=== PATIENT | male | born 1980 | race Caucasian/White ===

== ENCOUNTER 2021-01-21 14:34 | Inpatient (IN) | payer OTHER ==
[2021-01-21] MEDS ORDERED: NOREPINEPHRINE 32 MG in SODIUM CHLORIDE 0.9% 218 ML IV ONE (14:44)
--- NOTE | 2021-01-21 14:55 | ED ---
CPR HPI - General Stated Complaint: Overdose Time Seen by Provider: 01/21/21 14:34 Source: RN/MD, EMS, RN notes reviewed Mode of arrival: EMS - History of Present Illness Initial Comments: This is a 32-year-old male who was found unresponsive at home for an unknown amount of time he does have a history of heroin and cocaine abuse. He was found to be in asystole CPR was started he was given initially a total of 3 mg epinephrine with return of spontaneous circulation he then went into asystole again was given a fourth milligram of epinephrine went into A. fib and later returned normal sinus rhythm. He is also given Narcan IV. Patient was taken to [facility] and transferred here for further evaluation. Patient was not responsive he did require intubation as well as central line and vasopressors for blood pressure support. Patient was transferred here in a condition he has maintained his pulse is pressure was maintained with vasopressors. No other information available at this time MD Complaint: found unresponsive - Related Data Allergies Allergy/AdvReac Type Severity Reaction Status Date / Time No Known Allergies Allergy Verified 01/21/21 14:55 Review of Systems ROS Statement: Those systems with pertinent positive or pertinent negative responses have been documented in the HPI. ROS Other: All systems not noted in ROS Statement are negative. Limitations: ROS unobtainable due to patients medical condition General Exam - General Exam Comments Initial Comments: Is a well-developed well-nourished unresponsive male he is intubated with oral tracheal tube Limitations: altered mental status, physical limitation General appearance: other (Unresponsive) Head exam: Present: atraumatic Eye exam: Present: other (Pupils fixed and dilated) ENT exam: Present: other (Orotracheal tube present) Neck exam: Present: normal inspection Respiratory exam: Present: other (Good ventilatory effort with ventilator.) Cardiovascular Exam: Present: regular rate, normal rhythm, normal heart sounds. Absent: systolic murmur, diastolic murmur, rubs, gallop, clicks Rectal exam: Present: deferred exam: Present: normal inspection Extremities exam: Present: normal inspection, full ROM, normal capillary refill. Absent: tenderness, pedal edema, joint swelling, calf tenderness Back exam: Present: normal inspection Neurological exam: Present: other (Unresponsive) Psychiatric exam: Present: other (Unable to evaluate) Skin exam: Present: warm, dry, intact, normal color. Absent: rash Course Vital Signs 01/21/21 01/21/21 01/21/21 14:46 14:54 15:29 Temperature 90.0 F L Pulse Rate 63 69 Respiratory 16 12 Rate Blood Pressure 73/33 75/36 O2 Sat by Pulse 100 94 L Oximetry 01/21/21 01/21/21 01/21/21 15:30 15:45 16:00 Temperature 89.8 F L Pulse Rate 70 77 77 Respiratory 12 12 12 Rate Blood Pressure 73/44 88/42 107/74 O2 Sat by Pulse 94 L 95 Oximetry - Reevaluation(s) Reevaluation #1: 01/21/21 16:14 X-ray reviewed? Early infiltrate ET tube in good placement Medical Decision Making - Medical Decision Making I did review the materials presented from [facility] as well as discussed the initial findings with the paramedics at. The patient at home as well as transported. Also discussion with family as well as discussion with the admitting physician as well as with the hydraulic controls technician. Patient will be admitted. Also includes multiple reevaluation the patient. - Lab Data Lab Results 01/21/21 Range/Units 14:54 Sample Site rbrach ABG pH 7.11 L* (7.35-7.45) ABG pCO2 50 H (35-45) mmHg ABG pO2 273 H (83-108) mmHg ABG HCO3 16 L (21-25) mmol/L ABG Total CO2 18 L (19-24) mmol/L ABG O2 Saturation 99.6 H (94-97) % ABG Base Excess -13.6 mmol/L Ezequiel Test Yes FiO2 100 % - EKG Data -: EKG Interpreted by Me EKG shows normal: sinus rhythm EKG Comments: Sinus rhythm rate of 61 appear interval 182 QRS duration 112 QT since QTC 524/[address] depression prolonged QT - Radiology Data Radiology results: report reviewed (Imaging reviewed CT brain appears to be unremarkable chest x-ray shows ET tube in good placement question early aspiration infiltrate), image reviewed Critical Care Time Critical Care Time: Yes Total Critical Care Time: 35 Critical Care Time: Critical care time includes initial presentation with history physical labs x- rays review of the materials from the sending hospital. Reevaluation the patient discussed with family discussed with multiple physicians admission orders documentation the above Disposition Clinical Impression: Acute respiratory failure, Cardiac arrest, Drug overdose, Encephalopathy acute Disposition: ADMITTED IP TO THIS HOSP Condition: Critical Referrals: None,Stated [Primary Care Provider] - 1-2 days
[2021-01-21 14:57] LABS: ABG Base Excess -13.6 mmol/L; ABG HCO3 16 mmol/L (21-25); ABG Oxygen Saturation 99.6 % (94-97); ABG PCO2 50 mmHg (35-45); ABG PO2 273 mmHg (83-108); ABG TCO2 18 mmol/L (19-24); Allen Test Performed? Yes
[2021-01-21] MEDS ORDERED: NOREPINEPHRINE 32 MG in SODIUM CHLORIDE 0.9% 218 ML IV SCH (15:00)
[2021-01-21 15:03] LABS: ABG PH 7.11 (7.35-7.45)
[2021-01-21] MEDS ORDERED: ACETAMINOPHEN TAB 325 MG TAB PO PRN (15:17)
[2021-01-21] MEDS ORDERED: ARTIFICIAL TEARS OINTMENT 3.5 GM TUBE BOTH EYES PRN (15:17)
[2021-01-21] MEDS ORDERED: ACETAMINOPHEN SUPPOSITORY 650 MG SUPP RECTAL PRN (15:17)
[2021-01-21] MEDS ORDERED: NALOXONE 0.4 MG/ML 1 ML VIAL IV PRN (15:17)
[2021-01-21] MEDS ORDERED: SODIUM BICARB 8.4% 50 ML SYR (1 MEQ/ML) IV STA ×2 (15:19→15:25)
--- NOTE | 2021-01-21 15:33 | XR ---
EXAMINATION TYPE: XR chest 1V confirm line [facility] DATE OF EXAM: 01/21/2021 COMPARISON: Chest x-ray from outside institution same date HISTORY: Intubated TECHNIQUE: Single frontal view of the chest is obtained. FINDINGS: Endotracheal tube, NG tube are overlying appropriate positions. No evident pneumothorax or pleural effusion. Defibrillator pad present over the lower right chest, patient is rotated. Question able retrocardiac density noted. There are overlying leads. IMPRESSION: Difficult to exclude an aspiration pneumonia, expiratory rotated exam.
--- NOTE | 2021-01-21 16:19 | CT ---
EXAMINATION TYPE: CT brain wo con DATE OF EXAM: 01/21/2021 COMPARISON: None. HISTORY: Cardiac arrest, possible overdose. CT DLP: 1217.4 mGycm. Automated Exposure Control for Dose Reduction was Utilized. TECHNIQUE: CT scan of the head is performed without contrast. FINDINGS: Sulcal effacement with poor ortega-white matter differentiation is concerning for global an oxic injury. No hydrocephalus. Low-lying cerebellar tonsils into foramen magnum sagittal image 45 wit hout greater than 5 mm inferior displacement noted. Suprasellar cistern is effaced along with perimes encephalic cisterns. Hyperdense material at this level is consistent with pseudosubarachnoid hemorrha ge related to global anoxic injury. Mucosal thickening and patchy opacification ethmoid sinuses bilat erally. Moderately coastal thickening right sphenoid sinus and mild mucosal thickening bilateral maxi llary sinuses. Globes are intact bilaterally. Partial visualization of a left-sided nasogastric tube and endotracheal tube on the localizer. IMPRESSION: Diffuse sulcal effacement and ortega-white matter blurring consistent with global anoxic in jury causing obliteration of the suprasellar and perimesencephalic cisterns. Correlate clinically. No hydrocephalus or midline shift.
--- NOTE | 2021-01-21 16:30 | P.HPIM ---
History of Present Illness H&P Date: 01/21/21 Chief Complaint: Cardiac arrest 40-year-old man who has a history of substance abuse presented with cardiac arrest. Patient was found in asystole for an unknown downtime, EMS initiated CPR. Patient received 3 rounds epinephrine with return to PEA, then had brief A. fib with RVR prior to return of spontaneous circulation. Patient's neurological exam was incredibly poor following resuscitation. Workup at initial emergency room demonstrated normal CBC, acidosis on BMP, elevated AST/ALT in the 4000s consistent with shock, lactic acid of 18.1. ABG demonstrated pH of 7.11. U tox demonstrated positivity for methamphetamine, amphetamine, cocaine, opiate. Outside hospital documentation demonstrate concern for heroin overdose. Patient cannot participate in review of systems secondary to cardiac arrest. Review of Systems See HPI Past Medical History Past Medical History: No Reported History History of Any Multi-Drug Resistant Organisms: None Reported Past Surgical History: No Surgical Hx Reported Past Psychological History: No Psychological Hx Reported Smoking Status: Unknown if ever smoked Past Alcohol Use History: Unable to Obtain Past Drug Use History: Unable to Obtain Medications and Allergies Allergies Allergy/AdvReac Type Severity Reaction Status Date / Time No Known Allergies Allergy Verified 01/21/21 14:55 Physical Exam Osteopathic Statement: *. No significant issues noted on an osteopathic structural exam other than those noted in the History and Physical/Consult. Vitals: Vital Signs Temp Pulse Resp BP Pulse Ox 01/21/21 16:00 89.8 F L 77 12 107/74 95 01/21/21 15:45 77 12 88/42 01/21/21 15:30 70 12 73/44 94 L 01/21/21 15:29 69 12 75/36 94 L 01/21/21 14:54 90.0 F L 01/21/21 14:46 63 16 73/33 100 Intake and Output 01/21/21 01/21/21 01/21/21 06:59 14:59 22:59 Intake Total 1.332 Balance 1.332 Intake: Intake, IV Titration 1.332 Amount Norepinephrine 32 mg In 1.332 Sodium Chloride 0.9% 218 ml @ 0.05 MCG/KG/MIN 2. 578 mls/hr IV .Q24H [facility] Rx#:[id number] Other: Weight 110 kg Gen: Intubated, nonresponsive HEENT: normocephalic, atraumatic, good hearing acuity, moist mucous membranes Resp: Vent: Before meals 500, PEEP of 5, FiO2 100%, CVS: good distal perfusion x 4, regular rate and rhythm without murmurs GI: soft, ND : no SPT, no CVAT, wesley catheter is present MSK: no pitting edema, no clubbing Neuro: Fixed and dilated pupils, no movement to painful stimulus in all 4 extremities, no gag, no cough Results Labs: Abnormal Lab Results - Last 24 Hours (Table) 01/21/21 Range/Units 14:54 ABG pH 7.11 L* (7.35-7.45) ABG pCO2 50 H (35-45) mmHg ABG pO2 273 H (83-108) mmHg ABG HCO3 16 L (21-25) mmol/L ABG Total CO2 18 L (19-24) mmol/L ABG O2 Saturation 99.6 H (94-97) % Assessment and Plan Assessment: Narcotic overdose Cardiac arrest with return of spontaneous circulation Global anoxic brain injury -Admit to ICU -Pulmonary, neurology consult -Goals of care conversation with family pending -Unlikely to have meaningful recovery -Daily labs -neurochecks Pt is full code DVT PPx with heparin TID
[2021-01-21 16:35] LABS: HCT 45.1 % (39.0-53.0); HGB 14.9 gm/dL (13.0-17.5); MCH 30.2 pg (25.0-35.0); MCV 91.5 fL (80.0-100.0); Mean Platelet Volume 9.6; Platelet Count 297 k/uL (150-450); RBC 4.93 m/uL (4.30-5.90); RDW 12.3 % (11.5-15.5)
[2021-01-21 16:41] LABS: Calcium 7.6 mg/dL (8.4-10.2); Magnesium 2.4 mg/dL (1.6-2.3)
[2021-01-21] MEDS ORDERED: cefTRIAXone IN SWFI 1,000 MG/10 ML SYRINGE IVP STA (16:44)
[2021-01-21 16:45] LABS: Potassium 6.1 mmol/L (3.5-5.1)
[2021-01-21 16:55] LABS: Band Neutrophils % 5 %; Eosinophils # (M) 0.36 k/uL (0-0.7); Lymphocytes # (M) 5.04 k/uL (1.0-4.8); Metamyelocytes # (M) 1.44 k/uL (0); Metamyelocytes % 4 %; Monocytes # (M) 1.44 k/uL (0-1.0); Neutrophils % (M) 72 %; Nucleated Red Blood Cells 0 /100 WBC (0-0); Polychromasia Present; Total Cells Counted 100
[2021-01-21] MEDS: HEPARIN SODIUM,PORCINE/PF 5,000 UNIT/0.5 ML SYRINGE SQ SCH ×2 (19:08→23:51)
[2021-01-21] MEDS ORDERED: LORazepam 2 MG/ML INJ IV STA (19:25)
[2021-01-21] MEDS ORDERED: PHENYTOIN SODIUM INJ 1,000 MG in SODIUM CHLORIDE 0.9% 100 ML IVPB STA (19:26)
[2021-01-21] MEDS ORDERED: levETIRAcetam IV 1,000 MG in SALINE 1 100ML.BAG IVPB STA (19:26)
[2021-01-21 19:45] LABS: Glucose,Whole Blood 143 mg/dL (75-99)
[2021-01-21 19:48] LABS: INR 2.9 (<1.2); Partial Thromboplastin Time 65.9 sec (22.0-30.0); Prothrombin Time 27.9 sec (9.0-12.0)
[2021-01-21 19:51] LABS: Albumin 3.4 g/dL (3.5-5.0); Calcium 7.5 mg/dL (8.4-10.2); Magnesium 2.2 mg/dL (1.6-2.3); Phosphorus 6.9 mg/dL (2.5-4.5); Potassium 4.1 mmol/L (3.5-5.1); Total Bilirubin 1.4 mg/dL (0.2-1.3); Total Protein 6.2 g/dL (6.3-8.2)
[2021-01-21 19:54] LABS: HCT 46.8 % (39.0-53.0); HGB 15.6 gm/dL (13.0-17.5); MCH 30.4 pg (25.0-35.0); MCHC 33.4 g/dL (31.0-37.0); Mean Platelet Volume 9.5; Platelet Count 238 k/uL (150-450); RBC 5.14 m/uL (4.30-5.90); RDW 12.3 % (11.5-15.5); WBC 35.8 k/uL (3.8-10.6)
[2021-01-21] MEDS ORDERED: LORazepam 2 MG/ML INJ IV PRN (20:29)
[2021-01-21 21:32] LABS: Band Neutrophils % 16 %; Lymphocytes # (M) 2.86 k/uL (1.0-4.8); Metamyelocytes # (M) 0.36 k/uL (0); Metamyelocytes % 1 %; Monocytes # (M) 1.43 k/uL (0-1.0); Neutrophils % (M) 71 %; Nucleated Red Blood Cells 0 /100 WBC (0-0); Polychromasia Present; Total Cells Counted 100
[2021-01-21 21:41] LABS: ABG Base Excess -7.2 mmol/L; ABG HCO3 19 mmol/L (21-25); ABG Oxygen Saturation 92.7 % (94-97); ABG PCO2 40 mmHg (35-45); ABG PO2 66 mmHg (83-108); ABG TCO2 21 mmol/L (19-24); Allen Test Performed? Yes
[2021-01-21] MEDS ORDERED: NOREPINEPHRIN 4 MG-0.9% NS PMX 4 MG/250 ML ML IV ONE (21:49)
[2021-01-21] MEDS: NOREPINEPHRINE 4 MG in SODIUM CHLORIDE 0.9% 250 ML IV SCH (21:50)
[2021-01-21] MEDS: SODIUM CHLORIDE 0.9% 1,000 ML IV SCH (23:47)
[2021-01-22 02:29] LABS: HCT 43.3 % (39.0-53.0); HGB 14.1 gm/dL (13.0-17.5); MCH 29.6 pg (25.0-35.0); MCHC 32.6 g/dL (31.0-37.0); MCV 90.8 fL (80.0-100.0); Mean Platelet Volume 9.5; Platelet Count 269 k/uL (150-450); RBC 4.77 m/uL (4.30-5.90); RDW 12.4 % (11.5-15.5); WBC 23.8 k/uL (3.8-10.6)
[2021-01-22 02:36] LABS: Albumin 2.7 g/dL (3.5-5.0); Calcium 6.9 mg/dL (8.4-10.2); Magnesium 1.8 mg/dL (1.6-2.3); Potassium 3.4 mmol/L (3.5-5.1); Total Bilirubin 1.2 mg/dL (0.2-1.3); Total Protein 5.3 g/dL (6.3-8.2)
[2021-01-22] MEDS ORDERED: Potassium Replacement Protocol 1 EACH MISC MISCELLANE PRN (02:51)
[2021-01-22] MEDS ORDERED: SODIUM CHLORIDE 0.9% 1,000 ML IV ONE ×2 (03:00→22:39)
--- NOTE | 2021-01-22 03:23 | XR ---
EXAMINATION TYPE: XR chest 1V DATE OF EXAM: 01/22/2021 COMPARISON: NONE HISTORY: Respiratory failure TECHNIQUE: Single view FINDINGS: There is endotracheal tube 3.5 cm from the clifton. There is nasogastric tube there appears to be looped at the gastric fundus. There is some infiltrate and atelectasis left lung base behind th e heart. Heart is deviated slightly to the left side. Right lung is clear. There are chest leads. Bon y thorax is intact. IMPRESSION: There is probably some infiltrate and atelectasis left lower lobe. No heart failure. Endo tracheal tube in good position.
[2021-01-22] MEDS: POTASSIUM CHLORIDE 10 MEQ in WATER FOR INJECTION 1 100ML.BAG IVPB SCH ×4 (03:25→08:02)
[2021-01-22 04:22] LABS: Basophils # (A) 0.1 k/uL (0-0.2); Basophils % (A) 1 %; Eosinophils # (A) 0.1 k/uL (0-0.7); Eosinophils % (A) 0 %; HCT 43.5 % (39.0-53.0); HGB 14.5 gm/dL (13.0-17.5); Lymphocytes # (A) 1.2 k/uL (1.0-4.8); Lymphocytes % (A) 5 %; MCH 30.1 pg (25.0-35.0); MCHC 33.3 g/dL (31.0-37.0); MCV 90.3 fL (80.0-100.0); Mean Platelet Volume 10.5; Monocytes # (A) 0.4 k/uL (0-1.0); Monocytes % (A) 2 %; Neutrophils # (A) 22.1 k/uL (1.3-7.7); Neutrophils % (A) 92 %; Platelet Count 290 k/uL (150-450); RBC 4.82 m/uL (4.30-5.90); RDW 12.4 % (11.5-15.5)
[2021-01-22 05:14] LABS: Glucose,Whole Blood 86 mg/dL (75-99)
[2021-01-22] MEDS: NOREPINEPHRINE 4 MG in SODIUM CHLORIDE 0.9% 250 ML IV SCH (05:23)
[2021-01-22 05:28] LABS: INR 1.8 (<1.2); Partial Thromboplastin Time 30.8 sec (22.0-30.0)
[2021-01-22 05:37] LABS: ABG HCO3 21 mmol/L (21-25); ABG Oxygen Saturation 99.1 % (94-97); ABG PCO2 52 mmHg (35-45); ABG PH 7.21 (7.35-7.45); ABG PO2 169 mmHg (83-108); ABG TCO2 22 mmol/L (19-24); Allen Test Performed? Yes
[2021-01-22] MEDS ORDERED: Magnesium Replacement Protocol 1 EACH MISC MISCELLANE PRN (05:45)
[2021-01-22] MEDS: MAGNESIUM SULFATE-D5W PMX 1 GM in DEXTROSE/WATER 1 100ML.BAG IVPB SCH ×2 (06:22→08:01)
[2021-01-22] MEDS: SODIUM CHLORIDE 0.9% 1,000 ML IV SCH ×2 (06:33→13:59)
--- NOTE | 2021-01-22 09:23 | P.CNPUL ---
History of Present Illness Consult date: 01/22/21 Requesting physician: Tanisha Gutierrez Reason for consult: hypoxemia (Ventilator/critical care management) Chief complaint: Cardiac arrest History of present illness: This is a 40-year-old gentleman with a known history of depression, polysubstance drug abuse including cocaine and heroin. Yesterday afternoon he was found unresponsive at home. EMS was called is found to be in asystole and CPR was started and he was given a total of 3 mg of epinephrine with return of spontaneous circulation then went into asystole again given a fourth milligram of epinephrine he went and a defibrillator normal sinus rhythm. He was given Narcan. He was taken to [facility] initially and subsequently transferred here to our emergency room. He was intubated and placed on vasopressors for pressor support. Exact downtime on known. Initial lab results here revealed a white count of 35.8. Hemoglobin 15.6. Platelet count 238. INR 2.9. Fibrinogen level less than 80. Blood gases on 50% FiO2 is a pO2 of 66, pCO2 40, pH 7.30. Sodium 140. Potassium 4.1. Bicarb 19. Creatinine 1.54. Glucose 143. AST 7444, ALT 5407, albumin 3.4. EKG revealed sinus bradycardia with prolonged QT interval. Computed tomography scan of the brain revealed diffuse sulcal effacement and ortega-white matter blurring consistent with global anoxic injury causing obliteration of the suprasellar and a mesencephalic cisterns. Chest x-ray revealed some infiltrate/atelectasis of left lower lobe. Endotracheal tube in good position. He is seen today in consultation in the intensive care unit. Current vent settings are assist-control mode at a rate of 18, tidal volume 500, FiO2 100% and a PEEP of 5. Follow-up blood gases revealed a pO2 of 169, pCO2 52, pH 7.21. He is on propofol at 10 mcg/kg/m. Norepineph rine at 15.4 mcg/m. 0.9 normal saline at 130 ML's per hour. Urine drug screen was positive for methamphetamine, amphetamine, cocaine, Suboxone, opiates. Neurology has been consulted. EEG is pending. White count 23.8. Hemoglobin 14.1. INR 1.8. Fibrinogen 1.59. Sodium 142. Potassium 3.4. Bicarb 20. Creatinine 1.80. AST 7356, ALT 4235, albumin 2.7. The patient did receive 4 units of pooled cryoprecipitate. He was loaded with Keppra and Depakote. Did receive sodium bicarb. He is a DO NOT RESUSCITATE/DO NOT INTUBATE CODE STATUS. [facility] has been contacted. Review of Systems ROS unobtainable: due to endotracheal tube Past Medical History Past Medical History: No Reported History History of Any Multi-Drug Resistant Organisms: None Reported Past Surgical History: No Surgical Hx Reported Past Psychological History: No Psychological Hx Reported Smoking Status: Unknown if ever smoked Past Alcohol Use History: Unable to Obtain Past Drug Use History: Unable to Obtain Medications and Allergies Home Medications Medication Instructions Recorded Confirmed Type Buprenorphine HCl/Naloxone HCl 1 film SL TID 01/21/21 01/21/21 History [Suboxone 4 mg-1 mg Sl Film] Sertraline [Zoloft] 50 mg PO DAILY 01/21/21 01/21/21 History Sertraline [Zoloft] 100 mg PO DAILY 01/21/21 01/21/21 History traZODone HCL [Desyrel] 100 mg PO HS 01/21/21 01/21/21 History Allergies Allergy/AdvReac Type Severity Reaction Status Date / Time No Known Allergies Allergy Verified 01/21/21 16:36 Physical Exam Vitals: Vital Signs Temp Pulse Resp BP Pulse Ox 01/22/21 09:00 95 14 98/57 90 L 01/22/21 08:45 96 14 102/57 89 L 01/22/21 08:30 97 14 103/58 90 L 01/22/21 08:15 97 14 110/64 92 L 01/22/21 08:00 97.4 F L 96 18 100/62 97 01/22/21 07:45 99 18 104/61 97 01/22/21 07:30 97 18 99/59 97 01/22/21 07:15 99 18 100/53 97 01/22/21 07:00 100 18 93/58 97 01/22/21 06:45 101 H 18 99/56 96 01/22/21 06:30 102 H 18 92/58 96 01/22/21 06:15 103 H 18 94/55 96 01/22/21 06:00 103 H 18 97/51 96 09/23/21 05:45 105 H 18 99/58 96 01/22/21 05:30 105 H 18 102/57 98 01/22/21 05:15 106 H 18 117/67 98 01/22/21 05:00 117 H 18 117/70 97 01/22/21 04:45 115 H 18 109/70 98 01/22/21 04:43 98.5 F 114 H 18 109/70 01/22/21 04:30 106 H 18 118/68 97 01/22/21 04:15 116 H 18 116/70 97 01/22/21 04:13 98.3 F 115 H 18 116/70 97 01/22/21 04:10 98.3 F 112 H 18 125/68 97 01/22/21 04:00 98.3 F 115 H 18 120/72 96 01/22/21 03:50 98.0 F 111 H 18 120/72 96 01/22/21 03:45 108 H 18 119/71 96 01/22/21 03:30 118 H 18 117/71 95 01/22/21 03:15 120 H 18 106/63 94 L 01/22/21 03:00 111 H 18 98/64 94 L 01/22/21 02:45 111 H 18 90/58 91 L 01/22/21 02:30 111 H 18 109/60 84 L 01/22/21 02:15 111 H 8 L 105/58 88 L 01/22/21 02:00 109 H 18 99/66 92 L 01/22/21 01:45 108 H 18 106/66 92 L 01/22/21 01:30 108 H 18 110/67 01/22/21 01:15 105 H 18 101/65 90 L 01/22/21 01:12 94.0 F L 105 H 18 101/65 91 L 01/22/21 01:00 104 H 18 104/68 92 L 01/22/21 00:51 94 F L 105 H 18 104/68 91 L 01/22/21 00:45 105 H 18 98/65 91 L 01/22/21 00:38 94.2 F L 105 H 18 98/65 91 L 01/22/21 00:30 105 H 18 97/63 90 L 01/22/21 00:15 94.2 F L 104 H 18 86/61 90 L 01/22/21 00:00 102 H 18 75/46 88 L 01/21/21 23:45 100 18 103/65 88 L 01/21/21 23:30 100 18 86/59 91 L 01/21/21 23:15 99 18 93/64 90 L 01/21/21 23:00 101 H 8 L 95/55 93 L 01/21/21 22:45 99 18 101/57 90 L 01/21/21 22:30 98 18 104/67 90 L 01/21/21 22:15 97 18 127/109 91 L 01/21/21 22:00 92.9 F L 98 18 101/79 93 L 01/21/21 21:45 90 18 70/38 90 L 01/21/21 21:30 88 18 70/49 91 L 01/21/21 21:15 87 18 87/55 92 L 01/21/21 21:00 85 18 99/65 93 L 01/21/21 20:45 90 18 130/93 94 L 01/21/21 20:30 96 18 133/88 94 L 01/21/21 20:15 93 18 138/86 95 01/21/21 20:00 96 118 H 129/85 94 L 01/21/21 19:45 96 18 103/65 93 L 01/21/21 19:30 95 18 87/57 92 L 01/21/21 19:15 96 18 104/68 90 L 01/21/21 19:00 95 18 107/64 91 L 01/21/21 18:45 98 18 129/85 91 L 01/21/21 18:30 97 18 142/96 92 L 01/21/21 18:00 93 18 84/50 92 L 01/21/21 17:45 90 24 113/51 92 L 01/21/21 17:30 92 18 121/76 93 L 01/21/21 17:25 89.8 F L 93 12 121/76 93 L 01/21/21 17:00 95 12 149/91 91 L 01/21/21 16:45 92 12 144/88 93 L 01/21/21 16:30 89 12 135/76 91 L 01/21/21 16:15 81 12 112/64 95 01/21/21 16:00 89.8 F L 77 12 104/58 94 L 01/21/21 15:45 77 12 88/42 09/22/21 15:30 70 12 73/44 94 L 01/21/21 15:29 69 12 75/36 94 L 01/21/21 14:54 90.0 F L 01/21/21 14:46 63 16 73/33 100 Intake and Output 01/21/21 01/22/21 01/22/21 22:59 06:59 14:59 Intake Total 2310.746 2575.586 332.82 Output Total 235 1175 5 Balance 2075.746 1400.586 327.82 Intake: IV 2260 1910 260 Sodium Chloride 0.9% 1, 260 780 260 000 ml @ 130 mls/hr IV . Q7H42M [facility] Rx#:[id number] bolus 2000 1130 Intake, IV Titration 50.746 297.586 72.82 Amount Norepinephrine 32 mg In 50.746 Sodium Chloride 0.9% 218 ml @ 0.05 MCG/KG/MIN 2. 578 mls/hr IV .Q24H [facility] Rx#:[id number] Norepinephrine 4 mg In 297.586 Sodium Chloride 0.9% 250 ml @ 0.05 MCG/KG/MIN 20. 955 mls/hr IV .Q12H8M [facility] Rx#:[id number] propofoL 1,000 mg In 72.82 Empty Bag 1 bag @ Titrate IV .Q0M [facility] Rx#: [id number] Blood Product 368 Pooled Cryoprecipitate 93 Unit [id number] Pooled Cryoprecipitate 90 Unit [id number] Pooled Cryoprecipitate 85 Unit [id number] Pooled Cryoprecipitate 100 Unit [id number] Output: Urine 235 175 5 Stool 1000 Other: Voiding Method Indwelling Catheter Indwelling Catheter Indwelling Catheter Weight 108.5 kg GENERAL EXAM: Intubated, unresponsive 40-year-old male patient off propofol. HEAD: Normocephalic. EYES: No reaction of pupils, equal size. NOSE: Clear with pink turbinates. THROAT: Oral endotracheal and gastric tube secured in place. No erythema or exudates. NECK: No masses, no JVD. CHEST: No chest wall deformity. LUNGS: Equal air entry with no crackles, wheeze, rhonchi or dullness. CVS: S1 and S2 normal with no audible murmur, regular rhythm. ABDOMEN: No hepatosplenomegaly, normal bowel sounds, no guarding or rigidity. SPINE: No scoliosis or deformity SKIN: No rashes CENTRAL NERVOUS SYSTEM: No focal deficits, tone is normal in all 4 extremities. EXTREMITIES: There is no peripheral edema. No clubbing, no cyanosis. Peripheral pulses are intact. Results - Laboratory Findings CBC and BMP: 01/22/21 01:57 01/22/21 01:57 ABG ABG pH 7.21 (7.35-7.45) L 01/22/21 05:32 ABG pCO2 52 mmHg (35-45) H 01/22/21 05:32 ABG pO2 169 mmHg (83-108) H 01/22/21 05:32 ABG O2 Saturation 99.1 % (94-97) H 01/22/21 05:32 PT/INR, D-dimer PT 18.0 sec (9.0-12.0) H 01/22/21 04:06 INR 1.8 (<1.2) H 01/22/21 04:06 Abnormal lab findings: Abnormal Labs 01/21/21 01/21/21 01/21/21 14:54 16:07 16:24 WBC 36.0 H Neutrophils # Neutrophils # (Manual) 27.70 H Lymphocytes # (Manual) 5.04 H Monocytes # (Manual) 1.44 H Metamyelocytes # (Man) 1.44 H PT INR APTT Fibrinogen ABG pH 7.11 L* ABG pCO2 50 H ABG pO2 273 H ABG HCO3 16 L ABG Total CO2 18 L ABG O2 Saturation 99.6 H Potassium 6.1 H* Chloride 109 H Carbon Dioxide 20 L BUN Creatinine 1.44 H Glucose 119 H POC Glucose (mg/dL) Calcium 7.6 L Phosphorus Magnesium 2.4 H Total Bilirubin AST ALT Alkaline Phosphatase CK-MB (CK-2) Total Protein Albumin 01/21/21 01/21/21 01/21/21 19:18 19:18 19:18 WBC 35.8 H Neutrophils # Neutrophils # (Manual) 31.10 H Lymphocytes # (Manual) Monocytes # (Manual) 1.43 H Metamyelocytes # (Man) 0.36 H PT 27.9 H INR 2.9 H APTT 65.9 H Fibrinogen ABG pH ABG pCO2 ABG pO2 ABG HCO3 ABG Total CO2 ABG O2 Saturation Potassium Chloride 112 H Carbon Dioxide 19 L BUN Creatinine 1.54 H Glucose 146 H POC Glucose (mg/dL) Calcium 7.5 L Phosphorus 6.9 H Magnesium Total Bilirubin 1.4 H AST 7444 H ALT 5407 H Alkaline Phosphatase 276 H CK-MB (CK-2) Total Protein 6.2 L Albumin 3.4 L 01/21/21 01/21/21 01/21/21 19:43 21:24 21:36 WBC Neutrophils # Neutrophils # (Manual) Lymphocytes # (Manual) Monocytes # (Manual) Metamyelocytes # (Man) PT INR APTT Fibrinogen <80 L* ABG pH 7.30 L ABG pCO2 ABG pO2 66 L ABG HCO3 19 L ABG Total CO2 ABG O2 Saturation 92.7 L Potassium Chloride Carbon Dioxide BUN Creatinine Glucose POC Glucose (mg/dL) 143 H Calcium Phosphorus Magnesium Total Bilirubin AST ALT Alkaline Phosphatase CK-MB (CK-2) Total Protein Albumin 01/22/21 01/22/21 01/22/21 01:57 01:57 01:57 WBC 24.0 H 23.8 H Neutrophils # 22.1 H Neutrophils # (Manual) Lymphocytes # (Manual) Monocytes # (Manual) Metamyelocytes # (Man) PT INR APTT Fibrinogen <80 L* ABG pH ABG pCO2 ABG pO2 ABG HCO3 ABG Total CO2 ABG O2 Saturation Potassium Chloride Carbon Dioxide BUN Creatinine Glucose POC Glucose (mg/dL) Calcium Phosphorus Magnesium Total Bilirubin AST ALT Alkaline Phosphatase CK-MB (CK-2) Total Protein Albumin 01/22/21 01/22/21 01/22/21 01:57 04:06 04:06 WBC Neutrophils # Neutrophils # (Manual) Lymphocytes # (Manual) Monocytes # (Manual) Metamyelocytes # (Man) PT 18.0 H INR 1.8 H APTT 30.8 H Fibrinogen ABG pH ABG pCO2 ABG pO2 ABG HCO3 ABG Total CO2 ABG O2 Saturation Potassium 3.4 L Chloride 116 H Carbon Dioxide 20 L BUN 21 H Creatinine 1.80 H Glucose 115 H POC Glucose (mg/dL) Calcium 6.9 L Phosphorus Magnesium Total Bilirubin AST 7356 H ALT 4235 H Alkaline Phosphatase 174 H CK-MB (CK-2) 62.3 H Total Protein 5.3 L Albumin 2.7 L 01/22/21 01/22/21 05:32 06:36 WBC Neutrophils # Neutrophils # (Manual) Lymphocytes # (Manual) Monocytes # (Manual) Metamyelocytes # (Man) PT INR APTT Fibrinogen 159 L ABG pH 7.21 L ABG pCO2 52 H ABG pO2 169 H ABG HCO3 ABG Total CO2 ABG O2 Saturation 99.1 H Potassium Chloride Carbon Dioxide BUN Creatinine Glucose POC Glucose (mg/dL) Calcium Phosphorus Magnesium Total Bilirubin AST ALT Alkaline Phosphatase CK-MB (CK-2) Total Protein Albumin - Diagnostic Findings Chest x-ray: image reviewed Assessment and Plan Assessment: 1 Acute cardiopulmonary arrest suspect secondary to drug overdose of unclear downtime suspect extensive due to CT findings of the brain revealing diffuse sulcal effacement and ortega-white matter blurring consistent with global anoxic injury causing obliteration of the suprasellar and perimesencephalic cisterns. No hydrocephalus or midline shift. 2 Acute drug overdose with urine drug screen positive for methamphetamine, amphetamine, cocaine, Suboxone, opiates 3 Anoxic brain injury requiring intubation and mechanical ventilatory support 4 Leukocytosis, reactive 5 Coagulopathy secondary to acute liver injury. 6 Shock liver 7 Metabolic/respiratory acidosis secondary to above 8 Hypotension requiring pressor support secondary to above Plan: The patient was seen and evaluated by Dr. Simpson Chest x-ray, ABGs labs reviewed Decrease respiratory rate 14, decrease FiO2 to 70% Obtain a cortisol level [facility] been contacted Family made the patient DO NOT RESUSCITATE/DO NOT INTUBATE CODE STATUS EEG is pending Neurology consult pending Will most likely perform brain protocol May require central line placement for organ donation We will continue to follow and make further recommendations based on his clinical status. I, the cosigning physician, performed a history & physical examination of the patient. Lungs sounds are clear. Maintaining good O2 saturations in the 90s on 100% FiO2 via the mechanical ventilator. I discussed the assessment and plan of care with my nurse practitioner, Kimberlyn Davis. I attest to the above consultation as dictated by her. Time with Patient: Greater than 30
--- NOTE | 2021-01-22 10:09 | P.CNNES ---
History of Present Illness Consult date: 01/21/21 Requesting physician: Annamaria Bateman Reason for Consult: Anoxic brain injury History of Present Illness: Patient is a 40-year-old male came to the hospital by ambulance today on 2:34 PM after patient suffered from cardiac arrest. Patient was initially taken to [facility], and then transferred to [facility]. As per records from [facility], patient arrived at the hospital at 12:24 PM. Patient was found at 11:25 AM with heroin overdose. Last seen by family around 7 AM. Patient was given 3 epi with ROSC, went asystole. Fourth epi given with ROSC at atrial fibrillation at approximately 12:15 PM. Patient received total of 5 Narcan. Patient's pupils were fixed and dilated. Patient's blood glucose checked by EMS was 3:30. Patient's GCS was 3 when patient arrived to the [facility]. Temperature was 97.3, pulse rate 75. Patient was subsequently transferred to [facility] for neurological evaluation. EKG shows normal sinus rhythm. Junctional ST depression, probably normal. Prolonged QT. Chest x-ray revealed difficult to exclude an aspiration pneumonia, expiratory rotated exam. CT head showed diffuse sulcal effacement and ortega-white matter blurring consistent with global anoxic injury causing obliteration of the suprasellar and perimesencephalic cisterns. Correlate clinically. No hydrocephalus or midline shift. Patient's blood test shows WBC 36,000, hemoglobin 14.9, platelets 297. ABG on arrival pH 7.11, pCO2 50 and a pO2 273. Sodium is normal, potassium 6.1. BUN 16, creatinine 1.44. Patient's urine drug screen positive for cocaine, methamphetamine, amphetamines and Suboxone. Troponin 0.031. Patient at present is deeply comatose. Patient is having some head movements. Please refer to examination below. Review of Systems ROS unobtainable: due to endotracheal tube, due to mental status Past Medical History Past Medical History: No Reported History History of Any Multi-Drug Resistant Organisms: None Reported Past Surgical History: No Surgical Hx Reported Past Psychological History: No Psychological Hx Reported Smoking Status: Unknown if ever smoked Past Alcohol Use History: Unable to Obtain Past Drug Use History: Unable to Obtain Medications and Allergies Home Medications Medication Instructions Recorded Confirmed Type Buprenorphine HCl/Naloxone HCl 1 film SL TID 01/21/21 01/21/21 History [Suboxone 4 mg-1 mg Sl Film] Sertraline [Zoloft] 50 mg PO DAILY 01/21/21 01/21/21 History Sertraline [Zoloft] 100 mg PO DAILY 01/21/21 01/21/21 History traZODone HCL [Desyrel] 100 mg PO HS 01/21/21 01/21/21 History Allergies Allergy/AdvReac Type Severity Reaction Status Date / Time No Known Allergies Allergy Verified 01/21/21 16:36 Physical Examination - Vital Signs Vital Signs: Vital Signs Temp Pulse Resp BP Pulse Ox 01/21/21 18:00 93 18 84/50 92 L 01/21/21 17:45 90 24 113/51 92 L 01/21/21 17:30 92 18 121/76 93 L 01/21/21 17:25 89.8 F L 93 12 121/76 93 L 01/21/21 17:00 95 12 149/91 91 L 01/21/21 16:45 92 12 144/88 93 L 01/21/21 16:30 89 12 135/76 91 L 01/21/21 16:15 81 12 112/64 95 01/21/21 16:00 89.8 F L 77 12 104/58 94 L 01/21/21 15:45 77 12 88/42 01/21/21 15:30 70 12 73/44 94 L 01/21/21 15:29 69 12 75/36 94 L 01/21/21 14:54 90.0 F L 01/21/21 14:46 63 16 73/33 100 Intake and Output 01/21/21 01/21/21 01/21/21 06:59 14:59 22:59 Intake Total 24.536 Balance 24.536 Intake: Intake, IV Titration 24.536 Amount Norepinephrine 32 mg In 24.536 Sodium Chloride 0.9% 218 ml @ 0.05 MCG/KG/MIN 2. 578 mls/hr IV .Q24H [facility] Rx#:[id number] Other: Weight 110 kg On examination patient is a young male, who is intubated, not on any sedation. Patient is comatose, with GCS of 3. Patient does not respond to loud verbal, or deep painful stimuli. Patient's pupils are 6 mm, dilated, fixed, nonreactive. Oculocephalics are absent. Corneals absent. Face, tongue cannot be assessed. Other cranial nerves cannot be checked. Patient has no gag, no cough reflex. Patient is not breathing over the ventilator. Patient does not respond to painful stimuli. Reflexes are absent. Plantars are flat. Patient is having some rhythmic head movements. Tone is equal bilaterally. Results - Laboratory Findings CBC and BMP: 01/22/21 01:57 01/22/21 01:57 Abnormal Lab Findings: Abnormal Labs 01/21/21 01/21/21 01/21/21 14:54 16:07 16:24 WBC 36.0 H Neutrophils # (Manual) 27.70 H Lymphocytes # (Manual) 5.04 H Monocytes # (Manual) 1.44 H Metamyelocytes # (Man) 1.44 H ABG pH 7.11 L* ABG pCO2 50 H ABG pO2 273 H ABG HCO3 16 L ABG Total CO2 18 L ABG O2 Saturation 99.6 H Potassium 6.1 H* Chloride 109 H Carbon Dioxide 20 L Creatinine 1.44 H Glucose 119 H Calcium 7.6 L Magnesium 2.4 H Assessment and Plan Assessment: * Cardiac arrest, with prolonged downtime * Severe anoxic encephalopathy, comatose state, GCS of 3. * Rhythmic head movement, rule out seizures. * Polysubstance abuse, with urine positive for cocaine, methamphetamine, amphetamines and buprenorphine Plan: * Patient will be started on Keppra 1000 mg IV twice a day, patient will be given Dilantin loading dose of 1 g. * EEG in the morning. * Discussed with patient's family in detail. Overall prognosis discussed, which is extremely poor. * Supportive care. Time with Patient: Greater than 30 (Spent 15 minutes in counseling with the family.)
[2021-01-22 11:17] LABS: ABG Base Excess -9.2 mmol/L; ABG HCO3 20 mmol/L (21-25); ABG Oxygen Saturation 94.1 % (94-97); ABG PCO2 59 mmHg (35-45); ABG PO2 79 mmHg (83-108); ABG TCO2 22 mmol/L (19-24); Allen Test Performed? Yes
[2021-01-22 11:19] LABS: ABG PH 7.14 (7.35-7.45)
--- NOTE | 2021-01-22 11:31 | EEG ---
ELECTROENCEPHALOGRAM REPORT DATE OF SERVICE: 01/22/2021 PREAMBLE: This is a 40-year-old male with cardiac arrest. EEG FINDINGS: This is a 21-channel routine EEG recording in a patient utilizing 10/20 international system with referential and bipolar montages. The background consists of severely suppressed, almost isoelectric-appearing background, with no discernible significant background activity seen in bihemispheric region. No epileptiform activity was seen. Different stages of sleep were not seen. Photic stimulation was not performed. IMPRESSION: This is a very severely abnormal EEG due to background suppression with no definite electrocerebral activity seen in bihemispheric region. This is suggestive of generalized cerebral dysfunction, as can be seen with severe anoxic encephalopathy. No epileptiform activity was seen. MMODL / IJN: [id number] / MTDD
--- NOTE | 2021-01-22 11:39 | P.PN ---
Subjective Progress Note Date: 01/22/21 Pt is currently being worked up for brain , via EEG, and will likely have apnea test s/p 20 hours off of sedation. Objective - Vital Signs Vital signs: Vital Signs Temp 97.4 F L 01/22/21 08:00 Pulse 91 01/22/21 11:00 Resp 16 01/22/21 11:00 BP 97/57 01/22/21 11:00 Pulse Ox 91 L 01/22/21 11:00 Intake & Output 01/21/21 01/22/21 01/22/21 18:59 06:59 18:59 Intake Total 24.536 4861.796 792.82 Output Total 1410 13 Balance 24.536 3451.796 779.82 Weight 110 kg 108.5 kg Intake: IV 4170 260 Sodium Chloride 0.9% 1, 1040 260 000 ml @ 130 mls/hr IV . Q7H42M [facility] Rx#:[id number] bolus 3130 Intake, IV Titration 24.536 323.796 532.82 Amount Magnesium Sulfate-D5w Pmx 100 1 gm In Dextrose/Water 1 100ml.bag @ 100 mls/hr IVPB Q1H [facility] Rx#: [id number] Norepinephrine 32 mg In 24.536 26.210 Sodium Chloride 0.9% 218 ml @ 0.05 MCG/KG/MIN 2. 578 mls/hr IV .Q24H [facility] Rx#:[id number] Norepinephrine 4 mg In 297.586 Sodium Chloride 0.9% 250 ml @ 0.05 MCG/KG/MIN 20. 955 mls/hr IV .Q12H8M [facility] Rx#:[id number] Potassium Chloride 10 meq 100 In Water For Injection 1 100ml.bag @ 100 mls/hr IVPB Q1HR [facility] Rx#: [id number] Sodium Chloride 0.9% 1, 260 000 ml @ 130 mls/hr IV . Q7H42M [facility] Rx#:[id number] propofoL 1,000 mg In 72.82 Empty Bag 1 bag @ Titrate IV .Q0M [facility] Rx#: [id number] Blood Product 368 Pooled Cryoprecipitate 93 Unit [id number] Pooled Cryoprecipitate 90 Unit [id number] Pooled Cryoprecipitate 85 Unit [id number] Pooled Cryoprecipitate 100 Unit [id number] Output: Urine 410 13 Stool 1000 Other: Voiding Method Indwelling Catheter Indwelling Catheter - Exam Gen: Intubated, nonresponsive Resp: Vent: Before meals 500, PEEP of 5, FiO2 70%, Neuro: Fixed and dilated pupils, no movement to painful stimulus in all 4 extremities, no gag, no cough - Labs CBC & Chem 7: 01/22/21 01:57 01/22/21 01:57 Labs: Abnormal Lab Results - Last 24 Hours (Table) 01/21/21 01/21/21 01/21/21 Range/Units 14:54 16:07 16:24 WBC 36.0 H (3.8-10.6) k/uL Neutrophils # (1.3-7.7) k/uL Neutrophils # (Manual) 27.70 H (1.3-7.7) k/uL Lymphocytes # (Manual) 5.04 H (1.0-4.8) k/uL Monocytes # (Manual) 1.44 H (0-1.0) k/uL Metamyelocytes # (Man) 1.44 H (0) k/uL PT (9.0-12.0) sec INR (<1.2) APTT (22.0-30.0) sec Fibrinogen (200-500) mg/dL ABG pH 7.11 L* (7.35-7.45) ABG pCO2 50 H (35-45) mmHg ABG pO2 273 H (83-108) mmHg ABG HCO3 16 L (21-25) mmol/L ABG Total CO2 18 L (19-24) mmol/L ABG O2 Saturation 99.6 H (94-97) % Potassium 6.1 H* (3.5-5.1) mmol/L Chloride 109 H (98-107) mmol/L Carbon Dioxide 20 L (22-30) mmol/L BUN (9-20) mg/dL Creatinine 1.44 H (0.66-1.25) mg/dL Glucose 119 H (74-99) mg/dL POC Glucose (mg/dL) (75-99) mg/dL Calcium 7.6 L (8.4-10.2) mg/dL Phosphorus (2.5-4.5) mg/dL Magnesium 2.4 H (1.6-2.3) mg/dL Total Bilirubin (0.2-1.3) mg/dL AST (17-59) U/L ALT (4-49) U/L Alkaline Phosphatase (38-126) U/L CK-MB (CK-2) (0.0-2.4) ng/mL Total Protein (6.3-8.2) g/dL Albumin (3.5-5.0) g/dL 01/21/21 01/21/21 01/21/21 Range/Units 19:18 19:18 19:18 WBC 35.8 H (3.8-10.6) k/uL Neutrophils # (1.3-7.7) k/uL Neutrophils # (Manual) 31.10 H (1.3-7.7) k/uL Lymphocytes # (Manual) (1.0-4.8) k/uL Monocytes # (Manual) 1.43 H (0-1.0) k/uL Metamyelocytes # (Man) 0.36 H (0) k/uL PT 27.9 H (9.0-12.0) sec INR 2.9 H (<1.2) APTT 65.9 H (22.0-30.0) sec Fibrinogen (200-500) mg/dL ABG pH (7.35-7.45) ABG pCO2 (35-45) mmHg ABG pO2 (83-108) mmHg ABG HCO3 (21-25) mmol/L ABG Total CO2 (19-24) mmol/L ABG O2 Saturation (94-97) % Potassium (3.5-5.1) mmol/L Chloride 112 H (98-107) mmol/L Carbon Dioxide 19 L (22-30) mmol/L BUN (9-20) mg/dL Creatinine 1.54 H (0.66-1.25) mg/dL Glucose 146 H (74-99) mg/dL POC Glucose (mg/dL) (75-99) mg/dL Calcium 7.5 L (8.4-10.2) mg/dL Phosphorus 6.9 H (2.5-4.5) mg/dL Magnesium (1.6-2.3) mg/dL Total Bilirubin 1.4 H (0.2-1.3) mg/dL AST 7444 H (17-59) U/L ALT 5407 H (4-49) U/L Alkaline Phosphatase 276 H (38-126) U/L CK-MB (CK-2) (0.0-2.4) ng/mL Total Protein 6.2 L (6.3-8.2) g/dL Albumin 3.4 L (3.5-5.0) g/dL 01/21/21 01/21/21 01/21/21 Range/Units 19:43 21:24 21:36 WBC (3.8-10.6) k/uL Neutrophils # (1.3-7.7) k/uL Neutrophils # (Manual) (1.3-7.7) k/uL Lymphocytes # (Manual) (1.0-4.8) k/uL Monocytes # (Manual) (0-1.0) k/uL Metamyelocytes # (Man) (0) k/uL PT (9.0-12.0) sec INR (<1.2) APTT (22.0-30.0) sec Fibrinogen <80 L* (200-500) mg/dL ABG pH 7.30 L (7.35-7.45) ABG pCO2 (35-45) mmHg ABG pO2 66 L (83-108) mmHg ABG HCO3 19 L (21-25) mmol/L ABG Total CO2 (19-24) mmol/L ABG O2 Saturation 92.7 L (94-97) % Potassium (3.5-5.1) mmol/L Chloride (98-107) mmol/L Carbon Dioxide (22-30) mmol/L BUN (9-20) mg/dL Creatinine (0.66-1.25) mg/dL Glucose (74-99) mg/dL POC Glucose (mg/dL) 143 H (75-99) mg/dL Calcium (8.4-10.2) mg/dL Phosphorus (2.5-4.5) mg/dL Magnesium (1.6-2.3) mg/dL Total Bilirubin (0.2-1.3) mg/dL AST (17-59) U/L ALT (4-49) U/L Alkaline Phosphatase (38-126) U/L CK-MB (CK-2) (0.0-2.4) ng/mL Total Protein (6.3-8.2) g/dL Albumin (3.5-5.0) g/dL 01/22/21 01/22/21 01/22/21 Range/Units 01:57 01:57 01:57 WBC 24.0 H 23.8 H (3.8-10.6) k/uL Neutrophils # 22.1 H (1.3-7.7) k/uL Neutrophils # (Manual) (1.3-7.7) k/uL Lymphocytes # (Manual) (1.0-4.8) k/uL Monocytes # (Manual) (0-1.0) k/uL Metamyelocytes # (Man) (0) k/uL PT (9.0-12.0) sec INR (<1.2) APTT (22.0-30.0) sec Fibrinogen <80 L* (200-500) mg/dL ABG pH (7.35-7.45) ABG pCO2 (35-45) mmHg ABG pO2 (83-108) mmHg ABG HCO3 (21-25) mmol/L ABG Total CO2 (19-24) mmol/L ABG O2 Saturation (94-97) % Potassium (3.5-5.1) mmol/L Chloride (98-107) mmol/L Carbon Dioxide (22-30) mmol/L BUN (9-20) mg/dL Creatinine (0.66-1.25) mg/dL Glucose (74-99) mg/dL POC Glucose (mg/dL) (75-99) mg/dL Calcium (8.4-10.2) mg/dL Phosphorus (2.5-4.5) mg/dL Magnesium (1.6-2.3) mg/dL Total Bilirubin (0.2-1.3) mg/dL AST (17-59) U/L ALT (4-49) U/L Alkaline Phosphatase (38-126) U/L CK-MB (CK-2) (0.0-2.4) ng/mL Total Protein (6.3-8.2) g/dL Albumin (3.5-5.0) g/dL 01/22/21 01/22/21 01/22/21 Range/Units 01:57 04:06 04:06 WBC (3.8-10.6) k/uL Neutrophils # (1.3-7.7) k/uL Neutrophils # (Manual) (1.3-7.7) k/uL Lymphocytes # (Manual) (1.0-4.8) k/uL Monocytes # (Manual) (0-1.0) k/uL Metamyelocytes # (Man) (0) k/uL PT 18.0 H (9.0-12.0) sec INR 1.8 H (<1.2) APTT 30.8 H (22.0-30.0) sec Fibrinogen (200-500) mg/dL ABG pH (7.35-7.45) ABG pCO2 (35-45) mmHg ABG pO2 (83-108) mmHg ABG HCO3 (21-25) mmol/L ABG Total CO2 (19-24) mmol/L ABG O2 Saturation (94-97) % Potassium 3.4 L (3.5-5.1) mmol/L Chloride 116 H (98-107) mmol/L Carbon Dioxide 20 L (22-30) mmol/L BUN 21 H (9-20) mg/dL Creatinine 1.80 H (0.66-1.25) mg/dL Glucose 115 H (74-99) mg/dL POC Glucose (mg/dL) (75-99) mg/dL Calcium 6.9 L (8.4-10.2) mg/dL Phosphorus (2.5-4.5) mg/dL Magnesium (1.6-2.3) mg/dL Total Bilirubin (0.2-1.3) mg/dL AST 7356 H (17-59) U/L ALT 4235 H (4-49) U/L Alkaline Phosphatase 174 H (38-126) U/L CK-MB (CK-2) 62.3 H (0.0-2.4) ng/mL Total Protein 5.3 L (6.3-8.2) g/dL Albumin 2.7 L (3.5-5.0) g/dL 01/22/21 01/22/21 01/22/21 Range/Units 05:32 06:36 11:15 WBC (3.8-10.6) k/uL Neutrophils # (1.3-7.7) k/uL Neutrophils # (Manual) (1.3-7.7) k/uL Lymphocytes # (Manual) (1.0-4.8) k/uL Monocytes # (Manual) (0-1.0) k/uL Metamyelocytes # (Man) (0) k/uL PT (9.0-12.0) sec INR (<1.2) APTT (22.0-30.0) sec Fibrinogen 159 L (200-500) mg/dL ABG pH 7.21 L 7.14 L* (7.35-7.45) ABG pCO2 52 H 59 H (35-45) mmHg ABG pO2 169 H 79 L (83-108) mmHg ABG HCO3 20 L (21-25) mmol/L ABG Total CO2 (19-24) mmol/L ABG O2 Saturation 99.1 H (94-97) % Potassium (3.5-5.1) mmol/L Chloride (98-107) mmol/L Carbon Dioxide (22-30) mmol/L BUN (9-20) mg/dL Creatinine (0.66-1.25) mg/dL Glucose (74-99) mg/dL POC Glucose (mg/dL) (75-99) mg/dL Calcium (8.4-10.2) mg/dL Phosphorus (2.5-4.5) mg/dL Magnesium (1.6-2.3) mg/dL Total Bilirubin (0.2-1.3) mg/dL AST (17-59) U/L ALT (4-49) U/L Alkaline Phosphatase (38-126) U/L CK-MB (CK-2) (0.0-2.4) ng/mL Total Protein (6.3-8.2) g/dL Albumin (3.5-5.0) g/dL Assessment and Plan Assessment: Narcotic overdose Cardiac arrest with return of spontaneous circulation Global anoxic brain injury -Admit to ICU -Pulmonary, neurology consult -Goals of care conversation with family, family is okay with brain work up and considering organ donation -[facility] contacted -Brain work up pending
--- NOTE | 2021-01-22 11:39 | P.PN ---
Subjective Progress Note Date: 01/22/21 Patient is comatose. Off propofol since around 7:30 AM. No seizure-like activity. Blood test shows WBC 23.8, hemoglobin 14.1. Sodium 142 potassium 3.4 BUN 21, creatinine 1.8 hepatic panel revealed severely elevated AST 7356, and ALT 4235. Objective - Vital Signs Vital signs: Vital Signs Temp 97.4 F L 01/22/21 08:00 Pulse 91 01/22/21 11:00 Resp 16 01/22/21 11:00 BP 97/57 01/22/21 11:00 Pulse Ox 91 L 01/22/21 11:00 Intake & Output 01/21/21 01/22/21 01/22/21 18:59 06:59 18:59 Intake Total 24.536 4861.796 792.82 Output Total 1410 13 Balance 24.536 3451.796 779.82 Weight 110 kg 108.5 kg Intake: IV 4170 260 Sodium Chloride 0.9% 1, 1040 260 000 ml @ 130 mls/hr IV . Q7H42M [facility] Rx#:[id number] bolus 3130 Intake, IV Titration 24.536 323.796 532.82 Amount Magnesium Sulfate-D5w Pmx 100 1 gm In Dextrose/Water 1 100ml.bag @ 100 mls/hr IVPB Q1H [facility] Rx#: [id number] Norepinephrine 32 mg In 24.536 26.210 Sodium Chloride 0.9% 218 ml @ 0.05 MCG/KG/MIN 2. 578 mls/hr IV .Q24H [facility] Rx#:[id number] Norepinephrine 4 mg In 297.586 Sodium Chloride 0.9% 250 ml @ 0.05 MCG/KG/MIN 20. 955 mls/hr IV .Q12H8M [facility] Rx#:[id number] Potassium Chloride 10 meq 100 In Water For Injection 1 100ml.bag @ 100 mls/hr IVPB Q1HR [facility] Rx#: [id number] Sodium Chloride 0.9% 1, 260 000 ml @ 130 mls/hr IV . Q7H42M [facility] Rx#:[id number] propofoL 1,000 mg In 72.82 Empty Bag 1 bag @ Titrate IV .Q0M [facility] Rx#: [id number] Blood Product 368 Pooled Cryoprecipitate 93 Unit [id number] Pooled Cryoprecipitate 90 Unit [id number] Pooled Cryoprecipitate 85 Unit [id number] Pooled Cryoprecipitate 100 Unit [id number] Output: Urine 410 13 Stool 1000 Other: Voiding Method Indwelling Catheter Indwelling Catheter - Exam On examination patient is a young male, who is intubated, not on any sedation. Patient is comatose, with GCS of 3. Patient does not respond to loud verbal, or deep painful stimuli. Patient's pupils are 6 mm, dilated, fixed, nonreactive. Oculocephalics are absent. Corneals absent. Face, tongue cannot be assessed. Patient has no gag, no cough reflex. Patient is not breathing over the ventilator. Patient does not respond to painful stimuli. Reflexes are absent. Plantars are flat. No seizure-like activity noted. - Labs CBC & Chem 7: 01/22/21 01:57 01/22/21 01:57 Labs: Abnormal Lab Results - Last 24 Hours (Table) 01/21/21 01/21/21 01/21/21 Range/Units 14:54 16:07 16:24 WBC 36.0 H (3.8-10.6) k/uL Neutrophils # (1.3-7.7) k/uL Neutrophils # (Manual) 27.70 H (1.3-7.7) k/uL Lymphocytes # (Manual) 5.04 H (1.0-4.8) k/uL Monocytes # (Manual) 1.44 H (0-1.0) k/uL Metamyelocytes # (Man) 1.44 H (0) k/uL PT (9.0-12.0) sec INR (<1.2) APTT (22.0-30.0) sec Fibrinogen (200-500) mg/dL ABG pH 7.11 L* (7.35-7.45) ABG pCO2 50 H (35-45) mmHg ABG pO2 273 H (83-108) mmHg ABG HCO3 16 L (21-25) mmol/L ABG Total CO2 18 L (19-24) mmol/L ABG O2 Saturation 99.6 H (94-97) % Potassium 6.1 H* (3.5-5.1) mmol/L Chloride 109 H (98-107) mmol/L Carbon Dioxide 20 L (22-30) mmol/L BUN (9-20) mg/dL Creatinine 1.44 H (0.66-1.25) mg/dL Glucose 119 H (74-99) mg/dL POC Glucose (mg/dL) (75-99) mg/dL Calcium 7.6 L (8.4-10.2) mg/dL Phosphorus (2.5-4.5) mg/dL Magnesium 2.4 H (1.6-2.3) mg/dL Total Bilirubin (0.2-1.3) mg/dL AST (17-59) U/L ALT (4-49) U/L Alkaline Phosphatase (38-126) U/L CK-MB (CK-2) (0.0-2.4) ng/mL Total Protein (6.3-8.2) g/dL Albumin (3.5-5.0) g/dL 01/21/21 01/21/21 01/21/21 Range/Units 19:18 19:18 19:18 WBC 35.8 H (3.8-10.6) k/uL Neutrophils # (1.3-7.7) k/uL Neutrophils # (Manual) 31.10 H (1.3-7.7) k/uL Lymphocytes # (Manual) (1.0-4.8) k/uL Monocytes # (Manual) 1.43 H (0-1.0) k/uL Metamyelocytes # (Man) 0.36 H (0) k/uL PT 27.9 H (9.0-12.0) sec INR 2.9 H (<1.2) APTT 65.9 H (22.0-30.0) sec Fibrinogen (200-500) mg/dL ABG pH (7.35-7.45) ABG pCO2 (35-45) mmHg ABG pO2 (83-108) mmHg ABG HCO3 (21-25) mmol/L ABG Total CO2 (19-24) mmol/L ABG O2 Saturation (94-97) % Potassium (3.5-5.1) mmol/L Chloride 112 H (98-107) mmol/L Carbon Dioxide 19 L (22-30) mmol/L BUN (9-20) mg/dL Creatinine 1.54 H (0.66-1.25) mg/dL Glucose 146 H (74-99) mg/dL POC Glucose (mg/dL) (75-99) mg/dL Calcium 7.5 L (8.4-10.2) mg/dL Phosphorus 6.9 H (2.5-4.5) mg/dL Magnesium (1.6-2.3) mg/dL Total Bilirubin 1.4 H (0.2-1.3) mg/dL AST 7444 H (17-59) U/L ALT 5407 H (4-49) U/L Alkaline Phosphatase 276 H (38-126) U/L CK-MB (CK-2) (0.0-2.4) ng/mL Total Protein 6.2 L (6.3-8.2) g/dL Albumin 3.4 L (3.5-5.0) g/dL 01/21/21 01/21/21 01/21/21 Range/Units 19:43 21:24 21:36 WBC (3.8-10.6) k/uL Neutrophils # (1.3-7.7) k/uL Neutrophils # (Manual) (1.3-7.7) k/uL Lymphocytes # (Manual) (1.0-4.8) k/uL Monocytes # (Manual) (0-1.0) k/uL Metamyelocytes # (Man) (0) k/uL PT (9.0-12.0) sec INR (<1.2) APTT (22.0-30.0) sec Fibrinogen <80 L* (200-500) mg/dL ABG pH 7.30 L (7.35-7.45) ABG pCO2 (35-45) mmHg ABG pO2 66 L (83-108) mmHg ABG HCO3 19 L (21-25) mmol/L ABG Total CO2 (19-24) mmol/L ABG O2 Saturation 92.7 L (94-97) % Potassium (3.5-5.1) mmol/L Chloride (98-107) mmol/L Carbon Dioxide (22-30) mmol/L BUN (9-20) mg/dL Creatinine (0.66-1.25) mg/dL Glucose (74-99) mg/dL POC Glucose (mg/dL) 143 H (75-99) mg/dL Calcium (8.4-10.2) mg/dL Phosphorus (2.5-4.5) mg/dL Magnesium (1.6-2.3) mg/dL Total Bilirubin (0.2-1.3) mg/dL AST (17-59) U/L ALT (4-49) U/L Alkaline Phosphatase (38-126) U/L CK-MB (CK-2) (0.0-2.4) ng/mL Total Protein (6.3-8.2) g/dL Albumin (3.5-5.0) g/dL 01/22/21 01/22/21 01/22/21 Range/Units 01:57 01:57 01:57 WBC 24.0 H 23.8 H (3.8-10.6) k/uL Neutrophils # 22.1 H (1.3-7.7) k/uL Neutrophils # (Manual) (1.3-7.7) k/uL Lymphocytes # (Manual) (1.0-4.8) k/uL Monocytes # (Manual) (0-1.0) k/uL Metamyelocytes # (Man) (0) k/uL PT (9.0-12.0) sec INR (<1.2) APTT (22.0-30.0) sec Fibrinogen <80 L* (200-500) mg/dL ABG pH (7.35-7.45) ABG pCO2 (35-45) mmHg ABG pO2 (83-108) mmHg ABG HCO3 (21-25) mmol/L ABG Total CO2 (19-24) mmol/L ABG O2 Saturation (94-97) % Potassium (3.5-5.1) mmol/L Chloride (98-107) mmol/L Carbon Dioxide (22-30) mmol/L BUN (9-20) mg/dL Creatinine (0.66-1.25) mg/dL Glucose (74-99) mg/dL POC Glucose (mg/dL) (75-99) mg/dL Calcium (8.4-10.2) mg/dL Phosphorus (2.5-4.5) mg/dL Magnesium (1.6-2.3) mg/dL Total Bilirubin (0.2-1.3) mg/dL AST (17-59) U/L ALT (4-49) U/L Alkaline Phosphatase (38-126) U/L CK-MB (CK-2) (0.0-2.4) ng/mL Total Protein (6.3-8.2) g/dL Albumin (3.5-5.0) g/dL 01/22/21 01/22/21 01/22/21 Range/Units 01:57 04:06 04:06 WBC (3.8-10.6) k/uL Neutrophils # (1.3-7.7) k/uL Neutrophils # (Manual) (1.3-7.7) k/uL Lymphocytes # (Manual) (1.0-4.8) k/uL Monocytes # (Manual) (0-1.0) k/uL Metamyelocytes # (Man) (0) k/uL PT 18.0 H (9.0-12.0) sec INR 1.8 H (<1.2) APTT 30.8 H (22.0-30.0) sec Fibrinogen (200-500) mg/dL ABG pH (7.35-7.45) ABG pCO2 (35-45) mmHg ABG pO2 (83-108) mmHg ABG HCO3 (21-25) mmol/L ABG Total CO2 (19-24) mmol/L ABG O2 Saturation (94-97) % Potassium 3.4 L (3.5-5.1) mmol/L Chloride 116 H (98-107) mmol/L Carbon Dioxide 20 L (22-30) mmol/L BUN 21 H (9-20) mg/dL Creatinine 1.80 H (0.66-1.25) mg/dL Glucose 115 H (74-99) mg/dL POC Glucose (mg/dL) (75-99) mg/dL Calcium 6.9 L (8.4-10.2) mg/dL Phosphorus (2.5-4.5) mg/dL Magnesium (1.6-2.3) mg/dL Total Bilirubin (0.2-1.3) mg/dL AST 7356 H (17-59) U/L ALT 4235 H (4-49) U/L Alkaline Phosphatase 174 H (38-126) U/L CK-MB (CK-2) 62.3 H (0.0-2.4) ng/mL Total Protein 5.3 L (6.3-8.2) g/dL Albumin 2.7 L (3.5-5.0) g/dL 01/22/21 01/22/21 01/22/21 Range/Units 05:32 06:36 11:15 WBC (3.8-10.6) k/uL Neutrophils # (1.3-7.7) k/uL Neutrophils # (Manual) (1.3-7.7) k/uL Lymphocytes # (Manual) (1.0-4.8) k/uL Monocytes # (Manual) (0-1.0) k/uL Metamyelocytes # (Man) (0) k/uL PT (9.0-12.0) sec INR (<1.2) APTT (22.0-30.0) sec Fibrinogen 159 L (200-500) mg/dL ABG pH 7.21 L 7.14 L* (7.35-7.45) ABG pCO2 52 H 59 H (35-45) mmHg ABG pO2 169 H 79 L (83-108) mmHg ABG HCO3 20 L (21-25) mmol/L ABG Total CO2 (19-24) mmol/L ABG O2 Saturation 99.1 H (94-97) % Potassium (3.5-5.1) mmol/L Chloride (98-107) mmol/L Carbon Dioxide (22-30) mmol/L BUN (9-20) mg/dL Creatinine (0.66-1.25) mg/dL Glucose (74-99) mg/dL POC Glucose (mg/dL) (75-99) mg/dL Calcium (8.4-10.2) mg/dL Phosphorus (2.5-4.5) mg/dL Magnesium (1.6-2.3) mg/dL Total Bilirubin (0.2-1.3) mg/dL AST (17-59) U/L ALT (4-49) U/L Alkaline Phosphatase (38-126) U/L CK-MB (CK-2) (0.0-2.4) ng/mL Total Protein (6.3-8.2) g/dL Albumin (3.5-5.0) g/dL Assessment and Plan Assessment: * Cardiac arrest, with prolonged downtime * Severe anoxic encephalopathy, comatose state, GCS of 3. Clinically patient appears to have brain . * Seizure-like activity, resolved. * Polysubstance abuse, with urine positive for cocaine, methamphetamine, amphetamines and buprenorphine Plan: * Patient was given 1 loading dose of Keppra 1000 mg and Dilantin 1000 mg. No further seizure-like activity noted. Patient is off propofol. * EEG was performed today, which revealed severely suppressed background, almost appearing isoelectric pattern. In appropriate clinical setting, this EEG pattern may be consistent with brain . No epileptiform activity was seen. * Discussed with patient's family in detail. Overall prognosis nil. * Supportive care.
--- NOTE | 2021-01-22 11:46 | ECHOF ---
Referral Reason: MEASUREMENTS -------- HEIGHT: 180.3 cm WEIGHT: 108.4 kg BP: RVIDd: 1.7 cm (< 3.3) IVSd: 1.1 cm (0.6 - 1.1) LVIDd: 4.4 cm (3.9 - 5.3) LVPWd: 1.2 cm (0.6 - 1.1) IVSs: 1.6 cm LVIDs: 2.5 cm LVPWs: 1.8 cm Ao Diam: 3.2 cm (2.0 - 3.7) AV Cusp: 2.5 cm (1.5 - 2.6) LA Diam: 2.7 cm (2.7 - 3.8) MV EXCURSION: 20.477 mm (> 18.000) MV EF SLOPE: 117 mm/s (70 - 150) EPSS: 0.6 cm MV E Steven: 0.54 m/s MV DecT: 199 ms MV A Steven: 0.45 m/s MV E/A Ratio: 1.19 RAP: 5.00 mmHg RVSP: 17.74 mmHg FINDINGS -------- Sinus rhythm. This was a technically difficult study with suboptimal views. The left ventricular size is normal. There is mild concentric left ventricular hypertrophy. Overa ll left ventricular systolic function is mildly impaired with, an EF between 45 - 50 %. The right ventricle is normal in size. The global wall thickness of the right ventricle is moderate ly enlarged. The left atrial size is normal. The right atrial size is normal. Lumason used Unable to visualize the septum. The aortic valve is trileaflet, and appears structurally normal. No aortic stenosis or regurgitation. The mitral valve is normal. There is trace mitral regurgitation. The tricuspid valve appears structurally normal. Trace tricuspid regurgitation present. Right dash tricular systolic pressure is normal at < 35 mmHg. The pulmonic valve was not well visualized. There is no pulmonic regurgitation present. The aortic root size is normal. Normal inferior vena cava with normal inspiratory collapse consistent with estimated right atrial pre ssure of 5 mmHg. There is no pericardial effusion. CONCLUSIONS -------- 1. This was a technically difficult study with suboptimal views. 2. There is mild concentric left ventricular hypertrophy. 3. Overall left ventricular systolic function is mildly impaired with, an EF between 45 - 50 %. 4. The global wall thickness of the right ventricle is moderately enlarged. 5. Unable to visualize the septum. 6. The aortic valve is trileaflet, and appears structurally normal. No aortic stenosis or regurgitati on. 7. There is trace mitral regurgitation. 8. Trace tricuspid regurgitation present. 9. There is no pericardial effusion. REPAIR DEPARTMENT MANAGER: Nicol Aviles RDCS
[2021-01-22 13:23] LABS: ABG Base Excess -9.6 mmol/L; ABG HCO3 20 mmol/L (21-25); ABG Oxygen Saturation 98.8 % (94-97); ABG PCO2 60 mmHg (35-45); ABG PO2 147 mmHg (83-108); ABG TCO2 22 mmol/L (19-24)
[2021-01-22 13:24] LABS: ABG PH 7.12 (7.35-7.45); Allen Test Performed? NO
--- NOTE | 2021-01-22 13:30 | XR ---
EXAMINATION TYPE: XR chest 1V confirm line [facility] DATE OF EXAM: 01/22/2021 COMPARISON: Chest x-ray 01/22/2021 HISTORY: Status post central venous catheter placement TECHNIQUE: Single frontal view of the chest is obtained. FINDINGS: There is been interval placement of a left jugular central venous catheter, distal tip is within the right atrium region. No evident pneumothorax. Retrocardiac density, air bronchograms persi st. Overlying leads are present. Endotracheal and NG tube are stable and overlying appropriate positi ons. IMPRESSION: Central venous catheter as described, no evident complication
[2021-01-22 13:40] LABS: ABG Base Excess -9.6 mmol/L; ABG HCO3 22 mmol/L (21-25); ABG Oxygen Saturation 83.8 % (94-97); ABG PO2 61 mmHg (83-108); ABG TCO2 24 mmol/L (19-24)
[2021-01-22 13:41] LABS: ABG PCO2 89 mmHg (35-45); Allen Test Performed? no
[2021-01-22] MEDS: NOREPINEPHRINE 32 MG in SODIUM CHLORIDE 0.9% 218 ML IV SCH (14:55)
[2021-01-22] MEDS ORDERED: DEXTROSE 50% SYRINGE 50 ML IVP ONE (17:41)
[2021-01-22 17:42] LABS: Glucose,Whole Blood 56 mg/dL (75-99)
[2021-01-22 18:01] LABS: Glucose,Whole Blood 144 mg/dL (75-99)
[2021-01-22 18:44] LABS: Glucose,Whole Blood 71 mg/dL (75-99)
[2021-01-22] MEDS: DEXTROSE 5%-0.45% NACL 1,000 ML IV SCH (18:52)
[2021-01-22 19:14] LABS: Potassium 4.1 mmol/L (3.5-5.1)
--- NOTE | 2021-01-22 19:18 | PCN ---
PROCEDURE NOTE PROCEDURE: Left internal jugular triple-lumen catheter placement. PREOPERATIVE DIAGNOSIS: Administration of fluids and pressors. POSTOPERATIVE DIAGNOSIS: Administration of fluids and pressors. OPERATORS: 1. Dr. Simpson. 2. Dr. Davis. PROCEDURE DESCRIPTION: A time-out was completed verifying correct patient, procedure, site, positioning, and implant(s) or special equipment if applicable. The patient was placed in a dependent position appropriate for triple lumen catheter placement based on the vein to be cannulated. The patient's left neck was prepped and draped in sterile fashion. 1% Lidocaine was used to anesthetize the surrounding skin area. A triple lumen 9F Cordis catheter was introduced into the internal jugular vein using Seldinger technique via the posterior approach. The catheter was threaded smoothly over the guide wire and appropriate blood return was obtained. Each lumen of the catheter was evacuated of air and flushed with sterile saline. The catheter was then sutured in place to the skin and a sterile dressing applied by the nurse. Perfusion to the extremity distal to the point of catheter insertion was checked and found to be adequate. A chest x-ray was ordered to check placement of the catheter and to rule out pneumothorax. Again the patient tolerated the procedure very well without complication. MMODL / IJN: [id number] /
--- NOTE | 2021-01-22 19:25 | PCN ---
PROCEDURE NOTE PROCEDURE: Right radial arterial line placement. PREOPERATIVE DIAGNOSIS: Frequent blood draws and blood gas monitoring. POSTOPERATIVE DIAGNOSIS: Frequent blood draws and blood gas monitoring. OPERATORS: 1. Dr. Simpson. 2. Dr. Davis. A time-out was completed verifying correct patient, procedure, site, positioning, and implant(s) or special equipment if applicable. Ezequiel's test was performed to ensure adequate perfusion. The patient's right wrist was prepped and draped in sterile fashion. 1% Lidocaine was used to anesthetize the area. An 18G Arrow arterial line was introduced into the radial artery. The catheter was threaded over the guide wire and the needle was removed with appropriate pulsatile blood return. Blood loss was minimal. The catheter was then sutured in place to the skin and a sterile dressing was applied by the nurse. Perfusion to the extremity distal to the point of catheter insertion was checked and found to be adequate. The patient tolerated the procedure well and there were no immediate complications. There was good waveform and blood pressure reading. MMODL / IJN: [id number] /
[2021-01-22] MEDS ORDERED: ARTIFICIAL TEARS-HYPROMELLOSE DROPS 15 ML BTL BOTH EYES PRN (20:38)
[2021-01-22] MEDS: CHLORHEXIDINE GLUCONATE 15 ML CUP MUCOUS MEM SCH (21:22)
[2021-01-22 22:00] LABS: Glucose,Whole Blood 90 mg/dL (75-99)
[2021-01-22 22:51] LABS: Albumin 2.4 g/dL (3.5-5.0); Calcium 7.2 mg/dL (8.4-10.2); Potassium 4.2 mmol/L (3.5-5.1); Total Bilirubin 1.7 mg/dL (0.2-1.3); Total Protein 4.8 g/dL (6.3-8.2)
[2021-01-23 01:36] LABS: INR 1.5 (<1.2); Partial Thromboplastin Time 27.9 sec (22.0-30.0)
[2021-01-23 03:10] VITALS: BP 113/62
[2021-01-23 04:31] LABS: Glucose,Whole Blood 115 mg/dL (75-99)
[2021-01-23 04:46] LABS: Basophils # (A) 0.1 k/uL (0-0.2); Basophils % (A) 0 %; Eosinophils # (A) 0.5 k/uL (0-0.7); Eosinophils % (A) 3 %; HCT 44.2 % (39.0-53.0); HGB 13.7 gm/dL (13.0-17.5); Lymphocytes # (A) 1.3 k/uL (1.0-4.8); Lymphocytes % (A) 7 %; MCH 29.3 pg (25.0-35.0); MCV 94.4 fL (80.0-100.0); Mean Platelet Volume 10.4; Monocytes # (A) 0.4 k/uL (0-1.0); Monocytes % (A) 2 %; Neutrophils # (A) 18.2 k/uL (1.3-7.7); Neutrophils % (A) 89 %; Platelet Count 138 k/uL (150-450); RBC 4.68 m/uL (4.30-5.90); RDW 12.4 % (11.5-15.5); WBC 20.5 k/uL (3.8-10.6)
[2021-01-23 04:52] LABS: ABG Base Excess -11.4 mmol/L; ABG HCO3 17 mmol/L (21-25); ABG Oxygen Saturation 98.8 % (94-97); ABG PCO2 48 mmHg (35-45); ABG PO2 125 mmHg (83-108); ABG TCO2 19 mmol/L (19-24)
[2021-01-23 04:54] LABS: ABG PH 7.17 (7.35-7.45); Allen Test Performed? No
[2021-01-23 04:56] LABS: Magnesium 1.7 mg/dL (1.6-2.3); Potassium 4.6 mmol/L (3.5-5.1)
[2021-01-23] MEDS: MAGNESIUM SULFATE-D5W PMX 1 GM in DEXTROSE/WATER 1 100ML.BAG IVPB SCH ×2 (07:01→11:34)
[2021-01-23] MEDS: DEXTROSE 5%-0.45% NACL 1,000 ML IV SCH ×3 (08:34→21:00)
[2021-01-23] MEDS: CHLORHEXIDINE GLUCONATE 15 ML CUP MUCOUS MEM SCH ×2 (11:34→23:21)
--- NOTE | 2021-01-23 11:38 | P.PN ---
Subjective Progress Note Date: 01/23/21 Principal diagnosis: Cardiopulmonary arrest This is a 40-year-old gentleman with a known history of depression, polysubstance drug abuse including cocaine and heroin. Yesterday afternoon he was found unresponsive at home. EMS was called is found to be in asystole and CPR was started and he was given a total of 3 mg of epinephrine with return of spontaneous circulation then went into asystole again given a fourth milligram of epinephrine he went and a defibrillator normal sinus rhythm. He was given Narcan. He was taken to [facility] initially and subsequently tra nsferred here to our emergency room. He was intubated and placed on vasopressors for pressor support. Exact downtime on known. Initial lab results here revealed a white count of 35.8. Hemoglobin 15.6. Platelet count 238. INR 2.9. Fibrinogen level less than 80. Blood gases on 50% FiO2 is a pO2 of 66, pCO2 40, pH 7.30. Sodium 140. Potassium 4.1. Bicarb 19. Creatinine 1.54. Glucose 143. AST 7444, ALT 5407, albumin 3.4. EKG revealed sinus bradycardia with prolonged QT interval. Computed tomography scan of the brain revealed diffuse sulcal effacement and ortega-white matter blurring consistent with global anoxic injury causing obliteration of the suprasellar and a mesencephalic cist erns. Chest x-ray revealed some infiltrate/atelectasis of left lower lobe. Endotracheal tube in good position. He is seen today in consultation in the intensive care unit. Current vent settings are assist-control mode at a rate of 18, tidal volume 500, FiO2 100% and a PEEP of 5. Follow-up blood gases revealed a pO2 of 169, pCO2 52, pH 7.21. He is on propofol at 10 mcg/kg/m. Norepinephrine at 15.4 mcg/m. 0.9 normal saline at 130 ML's per hour. Urine drug screen was positive for methamphetamine, amphetamine, cocaine, Suboxone, opiates. Neurology has been consulted. EEG is pending. White count 23.8. Hemoglobin 14.1. INR 1.8. Fibrinogen 1.59. Sodium 142. Potassium 3.4. Bicarb 20. Creatinine 1.80. AST 7356, ALT 4235, albumin 2.7. The patient did receive 4 units of pooled cryoprecipitate. He was loaded with Keppra and Depakote. Did receive sodium bicarb. He is a DO NOT RESUSCITATE/DO NOT INTUBATE CODE STATUS. [facility] has been contacted. The patient is seen today 01/23/2021 in follow-up in the intensive care unit. He remains intubated on the mechanical ventilator. Currently his assist-control at a rate of 22, tidal volume 500, FiO2 90%, PEEP of 5. Morning blood gases revealed a pO2 of 125, pCO2 48, pH 7.17. He remains on D5 0.4 550 MLS per hour. Norepinephrine at 11 mcg/m. Today he appears to have some minimal brainstem function and he is breathing over the vent when turned down. His respirations are about 10/m. Shallow. Ineffective. No gag reflex. GCS of 3. Pupils fixed, nonreactive. He remains off sedation. Sputum culture pending. White count 20.5. Hemoglobin 13.7. Platelets 138. 41 potassium 4.6. Creatinine 4.23. BUN 29. Glucose 123. EEG reveals severely abnormal findings of background suppression with no definitive electrocerebral activity seen in the by hemispheric region. Suggestive of generalized cerebral dysfunction consistent with severe anoxic encephalopathy. No epileptiform activity seen. Objective - Vital Signs Vital signs: Vital Signs Temp 98.0 F 01/23/21 04:00 Pulse 102 H 01/23/21 07:00 Resp 22 01/23/21 07:00 BP 113/62 01/23/21 06:15 Pulse Ox 97 01/23/21 07:00 Intake & Output 01/22/21 01/23/21 01/23/21 18:59 06:59 18:59 Intake Total 2763.598 2305.776 210.233 Output Total 53 40 600 Balance 2710.598 2265.776 -389.767 Weight 115.8 kg Intake: IV 2040 2255 150 Dextrose 5%-0.45% NaCl 1, 1125 150 000 ml @ 150 mls/hr IV . Q6H40M ELOISE Rx#:[id number] Sodium Chloride 0.9% 1, 1040 130 000 ml @ 130 mls/hr IV . Q7H42M ELOISE Rx#:[id number] bolus 1000 1000 Intake, IV Titration 723.598 50.776 60.233 Amount Magnesium Sulfate-D5w Pmx 100 1 gm In Dextrose/Water 1 100ml.bag @ 100 mls/hr IVPB Q1H ELOISE Rx#: [id number] Norepinephrine 32 mg In 60.778 50.776 60.233 Sodium Chloride 0.9% 218 ml @ 0.05 MCG/KG/MIN 2. 543 mls/hr IV .Q24H ELOISE Rx#:[id number] Potassium Chloride 10 meq 100 In Water For Injection 1 100ml.bag @ 100 mls/hr IVPB Q1HR ELOISE Rx#: [id number] Sodium Chloride 0.9% 1, 390 000 ml @ 130 mls/hr IV . Q7H42M ELOISE Rx#:[id number] propofoL 1,000 mg In 72.82 Empty Bag 1 bag @ Titrate IV .Q0M ELOISE Rx#: [id number] Output: Gastric Drainage 100 Urine 53 40 Stool 500 Other: Voiding Method Indwelling Catheter Indwelling Catheter ABP, PAP, CO, CI - Last Documented Arterial Blood Pressure 125/64 - Exam GENERAL EXAM: Intubated, unresponsive 40-year-old male patient off propofol. HEAD: Normocephalic. EYES: No reaction of pupils, equal size. NOSE: Clear with pink turbinates. THROAT: Oral endotracheal and gastric tube secured in place. No erythema or exudates. NECK: No masses, no JVD. CHEST: No chest wall deformity. LUNGS: Equal air entry with no crackles, wheeze, rhonchi or dullness. CVS: S1 and S2 normal with no audible murmur, regular rhythm. ABDOMEN: No hepatosplenomegaly, normal bowel sounds, no guarding or rigidity. SPINE: No scoliosis or deformity SKIN: No rashes CENTRAL NERVOUS SYSTEM: Unresponsive, tone is normal in all 4 extremities. EXTREMITIES: There is no peripheral edema. No clubbing, no cyanosis. Peripheral pulses are intact. - Labs CBC & Chem 7: 01/23/21 04:31 01/23/21 04:31 Labs: Abnormal Lab Results - Last 24 Hours (Table) 01/22/21 01/22/21 01/22/21 Range/Units 13:21 13:38 17:40 WBC (3.8-10.6) k/uL Plt Count (150-450) k/uL Neutrophils # (1.3-7.7) k/uL PT (9.0-12.0) sec INR (<1.2) ABG pH 7.12 L* 7.00 L* (7.35-7.45) ABG pCO2 60 H 89 H* (35-45) mmHg ABG pO2 147 H 61 L (83-108) mmHg ABG HCO3 20 L (21-25) mmol/L ABG O2 Saturation 98.8 H 83.8 L (94-97) % Chloride (98-107) mmol/L Carbon Dioxide (22-30) mmol/L BUN (9-20) mg/dL Creatinine (0.66-1.25) mg/dL Glucose (74-99) mg/dL POC Glucose (mg/dL) 56 L (75-99) mg/dL Calcium (8.4-10.2) mg/dL Total Bilirubin (0.2-1.3) mg/dL AST (17-59) U/L ALT (4-49) U/L Alkaline Phosphatase (38-126) U/L Total Protein (6.3-8.2) g/dL Albumin (3.5-5.0) g/dL 01/22/21 01/22/21 01/22/21 Range/Units 17:59 18:42 18:55 WBC (3.8-10.6) k/uL Plt Count (150-450) k/uL Neutrophils # (1.3-7.7) k/uL PT (9.0-12.0) sec INR (<1.2) ABG pH (7.35-7.45) ABG pCO2 (35-45) mmHg ABG pO2 (83-108) mmHg ABG HCO3 (21-25) mmol/L ABG O2 Saturation (94-97) % Chloride 119 H (98-107) mmol/L Carbon Dioxide 17 L (22-30) mmol/L BUN (9-20) mg/dL Creatinine (0.66-1.25) mg/dL Glucose (74-99) mg/dL POC Glucose (mg/dL) 144 H 71 L (75-99) mg/dL Calcium (8.4-10.2) mg/dL Total Bilirubin (0.2-1.3) mg/dL AST (17-59) U/L ALT (4-49) U/L Alkaline Phosphatase (38-126) U/L Total Protein (6.3-8.2) g/dL Albumin (3.5-5.0) g/dL 01/22/21 01/22/21 01/23/21 Range/Units 21:58 22:35 04:29 WBC (3.8-10.6) k/uL Plt Count (150-450) k/uL Neutrophils # (1.3-7.7) k/uL PT 15.0 H (9.0-12.0) sec INR 1.5 H (<1.2) ABG pH (7.35-7.45) ABG pCO2 (35-45) mmHg ABG pO2 (83-108) mmHg ABG HCO3 (21-25) mmol/L ABG O2 Saturation (94-97) % Chloride 119 H (98-107) mmol/L Carbon Dioxide 17 L (22-30) mmol/L BUN 26 H (9-20) mg/dL Creatinine 3.77 H (0.66-1.25) mg/dL Glucose (74-99) mg/dL POC Glucose (mg/dL) 115 H (75-99) mg/dL Calcium 7.2 L (8.4-10.2) mg/dL Total Bilirubin 1.7 H (0.2-1.3) mg/dL AST 3713 H (17-59) U/L ALT 3064 H (4-49) U/L Alkaline Phosphatase 146 H (38-126) U/L Total Protein 4.8 L (6.3-8.2) g/dL Albumin 2.4 L (3.5-5.0) g/dL 01/23/21 01/23/21 01/23/21 Range/Units 04:31 04:31 04:46 WBC 20.5 H (3.8-10.6) k/uL Plt Count 138 L (150-450) k/uL Neutrophils # 18.2 H (1.3-7.7) k/uL PT (9.0-12.0) sec INR (<1.2) ABG pH 7.17 L* (7.35-7.45) ABG pCO2 48 H (35-45) mmHg ABG pO2 125 H (83-108) mmHg ABG HCO3 17 L (21-25) mmol/L ABG O2 Saturation 98.8 H (94-97) % Chloride 119 H (98-107) mmol/L Carbon Dioxide 17 L (22-30) mmol/L BUN 29 H (9-20) mg/dL Creatinine 4.23 H (0.66-1.25) mg/dL Glucose 123 H (74-99) mg/dL POC Glucose (mg/dL) (75-99) mg/dL Calcium 7.0 L (8.4-10.2) mg/dL Total Bilirubin (0.2-1.3) mg/dL AST (17-59) U/L ALT (4-49) U/L Alkaline Phosphatase (38-126) U/L Total Protein (6.3-8.2) g/dL Albumin (3.5-5.0) g/dL Microbiology - Last 24 Hours (Table) 01/22/21 01:55 Gram Stain - Preliminary Sputum Sputum Culture - Preliminary Assessment and Plan Assessment: 1 Acute cardiopulmonary arrest suspect secondary to drug overdose of unclear downtime suspect extensive due to CT findings of the brain revealing diffuse sulcal effacement and ortega-white matter blurring consistent with global anoxic injury causing obliteration of the suprasellar and perimesencephalic cisterns. No hydrocephalus or midline shift. There is minimal brain stem activity with patient is initiating his own shallow ineffective respirations at approximately 10/m on pressure support/CPAP. Currently not qualifying for the brain protocol for [facility]. 2 Acute drug overdose with urine drug screen positive for methamphetamine, amphetamine, cocaine, Suboxone, opiates 3 Sever anoxic brain injury requiring intubation and mechanical ventilatory support. EEG reveals severely abnormal findings of background suppression with no definitive electrocerebral activity seen in the by hemispheric region. Suggestive of generalized cerebral dysfunction consistent with severe anoxic encephalopathy. No epileptiform activity seen. 4 Leukocytosis, reactive 5 Coagulopathy secondary to acute liver injury. 6 Shock liver 7 Metabolic/respiratory acidosis secondary to above 8 Hypotension requiring pressor support secondary to above Plan: The patient was seen and evaluated by Dr. Simpson Chest x-ray, ABGs labs reviewed Increased respiratory rate to 26, decrease tidal volume to 60%, increase PEEP to 8 The patient initiating his own breaths, not a candidate for brain protocol [facility] at this time DO NOT RESUSCITATE/DO NOT INTUBATE CODE STATUS The family would like to wait another 24-48 hours before making any final decisions We will continue to follow and make further recommendations based on his clinical status. Critical care time 38 minutes I, the cosigning physician, performed a history & physical examination of the patient. Lungs sounds are clear. Maintaining good O2 saturations in the 90s on 100% FiO2 via the mechanical ventilator. I discussed the assessment and plan of care with my nurse practitioner, Kimberlyn Davis. I attest to the above consultation as dictated by her.
--- NOTE | 2021-01-23 12:29 | P.PN ---
Subjective Progress Note Date: 01/23/21 Pt had repeat apnea stim test today, and had 10 breaths/min spontaneously. No other brain stem reflexes apparent. Will continue to monitor per family wishes. Objective - Vital Signs Vital signs: Vital Signs Temp 98.0 F 01/23/21 04:00 Pulse 102 H 01/23/21 07:00 Resp 22 01/23/21 07:00 BP 113/62 01/23/21 06:15 Pulse Ox 97 01/23/21 07:00 Intake & Output 01/22/21 01/23/21 01/23/21 18:59 06:59 18:59 Intake Total 2763.598 2305.776 210.233 Output Total 53 40 600 Balance 2710.598 2265.776 -389.767 Weight 115.8 kg Intake: IV 2040 2255 150 Dextrose 5%-0.45% NaCl 1, 1125 150 000 ml @ 150 mls/hr IV . Q6H40M ELOISE Rx#:[id number] Sodium Chloride 0.9% 1, 1040 130 000 ml @ 130 mls/hr IV . Q7H42M ELOISE Rx#:[id number] bolus 1000 1000 Intake, IV Titration 723.598 50.776 60.233 Amount Magnesium Sulfate-D5w Pmx 100 1 gm In Dextrose/Water 1 100ml.bag @ 100 mls/hr IVPB Q1H ELOISE Rx#: [id number] Norepinephrine 32 mg In 60.778 50.776 60.233 Sodium Chloride 0.9% 218 ml @ 0.05 MCG/KG/MIN 2. 543 mls/hr IV .Q24H ELOISE Rx#:[id number] Potassium Chloride 10 meq 100 In Water For Injection 1 100ml.bag @ 100 mls/hr IVPB Q1HR ELOISE Rx#: [id number] Sodium Chloride 0.9% 1, 390 000 ml @ 130 mls/hr IV . Q7H42M ELOISE Rx#:[id number] propofoL 1,000 mg In 72.82 Empty Bag 1 bag @ Titrate IV .Q0M ELOISE Rx#: [id number] Output: Gastric Drainage 100 Urine 53 40 Stool 500 Other: Voiding Method Indwelling Catheter Indwelling Catheter ABP, PAP, CO, CI - Last Documented Arterial Blood Pressure 125/64 - Exam Gen: Intubated, nonresponsive Resp: Vent: AC 500, PEEP of 5, FiO2 70%, Neuro: Fixed and dilated pupils, no movement to painful stimulus in all 4 extremities, no gag, no cough - Labs CBC & Chem 7: 01/23/21 04:31 01/23/21 04:31 Labs: Abnormal Lab Results - Last 24 Hours (Table) 01/22/21 01/22/21 01/22/21 Range/Units 13:21 13:38 17:40 WBC (3.8-10.6) k/uL Plt Count (150-450) k/uL Neutrophils # (1.3-7.7) k/uL PT (9.0-12.0) sec INR (<1.2) ABG pH 7.12 L* 7.00 L* (7.35-7.45) ABG pCO2 60 H 89 H* (35-45) mmHg ABG pO2 147 H 61 L (83-108) mmHg ABG HCO3 20 L (21-25) mmol/L ABG O2 Saturation 98.8 H 83.8 L (94-97) % Chloride (98-107) mmol/L Carbon Dioxide (22-30) mmol/L BUN (9-20) mg/dL Creatinine (0.66-1.25) mg/dL Glucose (74-99) mg/dL POC Glucose (mg/dL) 56 L (75-99) mg/dL Calcium (8.4-10.2) mg/dL Total Bilirubin (0.2-1.3) mg/dL AST (17-59) U/L ALT (4-49) U/L Alkaline Phosphatase (38-126) U/L Total Protein (6.3-8.2) g/dL Albumin (3.5-5.0) g/dL 01/22/21 01/22/21 01/22/21 Range/Units 17:59 18:42 18:55 WBC (3.8-10.6) k/uL Plt Count (150-450) k/uL Neutrophils # (1.3-7.7) k/uL PT (9.0-12.0) sec INR (<1.2) ABG pH (7.35-7.45) ABG pCO2 (35-45) mmHg ABG pO2 (83-108) mmHg ABG HCO3 (21-25) mmol/L ABG O2 Saturation (94-97) % Chloride 119 H (98-107) mmol/L Carbon Dioxide 17 L (22-30) mmol/L BUN (9-20) mg/dL Creatinine (0.66-1.25) mg/dL Glucose (74-99) mg/dL POC Glucose (mg/dL) 144 H 71 L (75-99) mg/dL Calcium (8.4-10.2) mg/dL Total Bilirubin (0.2-1.3) mg/dL AST (17-59) U/L ALT (4-49) U/L Alkaline Phosphatase (38-126) U/L Total Protein (6.3-8.2) g/dL Albumin (3.5-5.0) g/dL 01/22/21 01/22/21 01/23/21 Range/Units 21:58 22:35 04:29 WBC (3.8-10.6) k/uL Plt Count (150-450) k/uL Neutrophils # (1.3-7.7) k/uL PT 15.0 H (9.0-12.0) sec INR 1.5 H (<1.2) ABG pH (7.35-7.45) ABG pCO2 (35-45) mmHg ABG pO2 (83-108) mmHg ABG HCO3 (21-25) mmol/L ABG O2 Saturation (94-97) % Chloride 119 H (98-107) mmol/L Carbon Dioxide 17 L (22-30) mmol/L BUN 26 H (9-20) mg/dL Creatinine 3.77 H (0.66-1.25) mg/dL Glucose (74-99) mg/dL POC Glucose (mg/dL) 115 H (75-99) mg/dL Calcium 7.2 L (8.4-10.2) mg/dL Total Bilirubin 1.7 H (0.2-1.3) mg/dL AST 3713 H (17-59) U/L ALT 3064 H (4-49) U/L Alkaline Phosphatase 146 H (38-126) U/L Total Protein 4.8 L (6.3-8.2) g/dL Albumin 2.4 L (3.5-5.0) g/dL 01/23/21 01/23/21 01/23/21 Range/Units 04:31 04:31 04:46 WBC 20.5 H (3.8-10.6) k/uL Plt Count 138 L (150-450) k/uL Neutrophils # 18.2 H (1.3-7.7) k/uL PT (9.0-12.0) sec INR (<1.2) ABG pH 7.17 L* (7.35-7.45) ABG pCO2 48 H (35-45) mmHg ABG pO2 125 H (83-108) mmHg ABG HCO3 17 L (21-25) mmol/L ABG O2 Saturation 98.8 H (94-97) % Chloride 119 H (98-107) mmol/L Carbon Dioxide 17 L (22-30) mmol/L BUN 29 H (9-20) mg/dL Creatinine 4.23 H (0.66-1.25) mg/dL Glucose 123 H (74-99) mg/dL POC Glucose (mg/dL) (75-99) mg/dL Calcium 7.0 L (8.4-10.2) mg/dL Total Bilirubin (0.2-1.3) mg/dL AST (17-59) U/L ALT (4-49) U/L Alkaline Phosphatase (38-126) U/L Total Protein (6.3-8.2) g/dL Albumin (3.5-5.0) g/dL Microbiology - Last 24 Hours (Table) 01/22/21 01:55 Gram Stain - Preliminary Sputum Sputum Culture - Preliminary Assessment and Plan Assessment: Narcotic overdose Cardiac arrest with return of spontaneous circulation Global anoxic brain injury Hypoglycemia Acute Kidney Injury -Admit to ICU -Pulmonary, neurology consult -Goals of care conversation with family -[facility] contacted -Family would like to continue to monitor to see if patient improves -Continue to monitor clinical status -D5/0.45NS to hydrate kidneys and maintain euglycemia
[2021-01-23 12:47] VITALS: RESP 26
--- NOTE | 2021-01-23 13:25 | P.PN ---
Subjective Progress Note Date: 01/23/21 Patient is comatose. Off propofol since around 7:30 AM yesterday. No seizure- like activity. Blood test shows WBC 20.5, hemoglobin 13.7, platelets 138. Patient's pH is 7.17, pCO2 48, pO2 125. Electrolytes are normal, BUN 29, creatinine is further versus 4.23. Patient's AST was highly elevated 3713 and ALT 3064 as of yesterday. Objective - Vital Signs Vital signs: Vital Signs Temp 96.8 F L 01/23/21 12:00 Pulse 89 01/23/21 12:30 Resp 26 H 01/23/21 12:30 BP 113/62 01/23/21 06:15 Pulse Ox 96 01/23/21 12:30 Intake & Output 01/22/21 01/23/21 01/23/21 18:59 06:59 18:59 Intake Total 2763.598 2305.776 1160.233 Output Total 53 40 635 Balance 2710.598 2265.776 525.233 Weight 115.8 kg Intake: IV 2040 2255 1100 0.9 @ 20 100 Dextrose 5%-0.45% NaCl 1, 1125 900 000 ml @ 150 mls/hr IV . Q6H40M [facility] Rx#:[id number] Magnesium Sulfate-D5w Pmx 100 1 gm In Dextrose/Water 1 100ml.bag @ 100 mls/hr IVPB Q1H [facility] Rx#: [id number] Sodium Chloride 0.9% 1, 1040 130 000 ml @ 130 mls/hr IV . Q7H42M [facility] Rx#:[id number] bolus 1000 1000 Intake, IV Titration 723.598 50.776 60.233 Amount Magnesium Sulfate-D5w Pmx 100 1 gm In Dextrose/Water 1 100ml.bag @ 100 mls/hr IVPB Q1H [facility] Rx#: [id number] Norepinephrine 32 mg In 60.778 50.776 60.233 Sodium Chloride 0.9% 218 ml @ 0.05 MCG/KG/MIN 2. 543 mls/hr IV .Q24H [facility] Rx#:[id number] Potassium Chloride 10 meq 100 In Water For Injection 1 100ml.bag @ 100 mls/hr IVPB Q1HR [facility] Rx#: [id number] Sodium Chloride 0.9% 1, 390 000 ml @ 130 mls/hr IV . Q7H42M [facility] Rx#:[id number] propofoL 1,000 mg In 72.82 Empty Bag 1 bag @ Titrate IV .Q0M [facility] Rx#: [id number] Output: Gastric Drainage 100 Urine 53 40 35 Stool 500 Other: Voiding Method Indwelling Catheter Indwelling Catheter ABP, PAP, CO, CI - Last Documented Arterial Blood Pressure 104/60 - Exam On examination patient is a young male, who is intubated, not on any sedation. Patient is comatose, with GCS of 3. Patient does not respond to loud verbal, or deep painful stimuli. Patient's pupils are 6 mm, dilated, fixed, nonreactive. Oculocephalics (doll's reflexes) are absent. Corneals absent. Face, tongue cannot be assessed. Patient has no gag, no cough reflex with deep suctioning. On changing ventilator setting to spontaneous respiration by the respiratory therapist, patient was noted to be breathing at about 10-11/m. It was rechecked about 1 hour later, (with the same technique), and he was still breathing at the same rate 10-11/m. We were planning for vestibular cephalic response, but with the above information, it was not performed. Patient does not respond to painful stimuli. Reflexes are absent at biceps, brachioradialis, knees and ankles. Plantars are flat. No seizure-like activity noted. - Labs CBC & Chem 7: 01/24/21 05:40 01/24/21 05:40 Labs: Abnormal Lab Results - Last 24 Hours (Table) 01/22/21 01/22/21 01/22/21 Range/Units 13:21 13:38 17:40 WBC (3.8-10.6) k/uL Plt Count (150-450) k/uL Neutrophils # (1.3-7.7) k/uL PT (9.0-12.0) sec INR (<1.2) ABG pH 7.12 L* 7.00 L* (7.35-7.45) ABG pCO2 60 H 89 H* (35-45) mmHg ABG pO2 147 H 61 L (83-108) mmHg ABG HCO3 20 L (21-25) mmol/L ABG O2 Saturation 98.8 H 83.8 L (94-97) % Chloride (98-107) mmol/L Carbon Dioxide (22-30) mmol/L BUN (9-20) mg/dL Creatinine (0.66-1.25) mg/dL Glucose (74-99) mg/dL POC Glucose (mg/dL) 56 L (75-99) mg/dL Calcium (8.4-10.2) mg/dL Total Bilirubin (0.2-1.3) mg/dL AST (17-59) U/L ALT (4-49) U/L Alkaline Phosphatase (38-126) U/L Total Protein (6.3-8.2) g/dL Albumin (3.5-5.0) g/dL 01/22/21 01/22/21 01/22/21 Range/Units 17:59 18:42 18:55 WBC (3.8-10.6) k/uL Plt Count (150-450) k/uL Neutrophils # (1.3-7.7) k/uL PT (9.0-12.0) sec INR (<1.2) ABG pH (7.35-7.45) ABG pCO2 (35-45) mmHg ABG pO2 (83-108) mmHg ABG HCO3 (21-25) mmol/L ABG O2 Saturation (94-97) % Chloride 119 H (98-107) mmol/L Carbon Dioxide 17 L (22-30) mmol/L BUN (9-20) mg/dL Creatinine (0.66-1.25) mg/dL Glucose (74-99) mg/dL POC Glucose (mg/dL) 144 H 71 L (75-99) mg/dL Calcium (8.4-10.2) mg/dL Total Bilirubin (0.2-1.3) mg/dL AST (17-59) U/L ALT (4-49) U/L Alkaline Phosphatase (38-126) U/L Total Protein (6.3-8.2) g/dL Albumin (3.5-5.0) g/dL 01/22/21 01/22/21 01/23/21 Range/Units 21:58 22:35 04:29 WBC (3.8-10.6) k/uL Plt Count (150-450) k/uL Neutrophils # (1.3-7.7) k/uL PT 15.0 H (9.0-12.0) sec INR 1.5 H (<1.2) ABG pH (7.35-7.45) ABG pCO2 (35-45) mmHg ABG pO2 (83-108) mmHg ABG HCO3 (21-25) mmol/L ABG O2 Saturation (94-97) % Chloride 119 H (98-107) mmol/L Carbon Dioxide 17 L (22-30) mmol/L BUN 26 H (9-20) mg/dL Creatinine 3.77 H (0.66-1.25) mg/dL Glucose (74-99) mg/dL POC Glucose (mg/dL) 115 H (75-99) mg/dL Calcium 7.2 L (8.4-10.2) mg/dL Total Bilirubin 1.7 H (0.2-1.3) mg/dL AST 3713 H (17-59) U/L ALT 3064 H (4-49) U/L Alkaline Phosphatase 146 H (38-126) U/L Total Protein 4.8 L (6.3-8.2) g/dL Albumin 2.4 L (3.5-5.0) g/dL 01/23/21 01/23/21 01/23/21 Range/Units 04:31 04:31 04:46 WBC 20.5 H (3.8-10.6) k/uL Plt Count 138 L (150-450) k/uL Neutrophils # 18.2 H (1.3-7.7) k/uL PT (9.0-12.0) sec INR (<1.2) ABG pH 7.17 L* (7.35-7.45) ABG pCO2 48 H (35-45) mmHg ABG pO2 125 H (83-108) mmHg ABG HCO3 17 L (21-25) mmol/L ABG O2 Saturation 98.8 H (94-97) % Chloride 119 H (98-107) mmol/L Carbon Dioxide 17 L (22-30) mmol/L BUN 29 H (9-20) mg/dL Creatinine 4.23 H (0.66-1.25) mg/dL Glucose 123 H (74-99) mg/dL POC Glucose (mg/dL) (75-99) mg/dL Calcium 7.0 L (8.4-10.2) mg/dL Total Bilirubin (0.2-1.3) mg/dL AST (17-59) U/L ALT (4-49) U/L Alkaline Phosphatase (38-126) U/L Total Protein (6.3-8.2) g/dL Albumin (3.5-5.0) g/dL Microbiology - Last 24 Hours (Table) 01/22/21 01:55 Gram Stain - Preliminary Sputum Sputum Culture - Preliminary Assessment and Plan Assessment: * Cardiac arrest, with prolonged downtime * Severe anoxic encephalopathy, comatose state, GCS of 3. On today's examination, the only response is patient was breathing spontaneously at 11/min (when the ventilator setting changed to spontaneous mode). Therefore there is still minimally preserved brainstem functioning. This was absent yesterday, which could be related to the effect of polysubstance that he has taken the day prior, which probably was impairing his respiratory drive. * Seizure-like activity, now completely resolved. * Polysubstance abuse, with urine positive for cocaine, methamphetamine, amphetamines and buprenorphine Plan: * Although patient has respiratory drive, indicating minimal brainstem functioning, however his prognosis is still nil. * Gift of life and the nursing staff was informed and discussed in detail. Also discussed with ICU staff. * EEG from 01/22/2021 revealed severely suppressed background, almost appearing isoelectric pattern. In appropriate clinical setting, this EEG pattern may be consistent with brain . No epileptiform activity was seen. * Supportive care. Time with Patient: Greater than 30
[2021-01-23] MEDS: NOREPINEPHRINE 32 MG in SODIUM CHLORIDE 0.9% 218 ML IV SCH (19:14)
[2021-01-23] MEDS ORDERED: SODIUM CHLORIDE 0.9% 1,000 ML IV ONE (21:40)
[2021-01-23 21:57] LABS: ABG Base Excess -10.4 mmol/L; ABG HCO3 16 mmol/L (21-25); ABG Oxygen Saturation 98.6 % (94-97); ABG PCO2 32 mmHg (35-45); ABG PH 7.31 (7.35-7.45); ABG PO2 108 mmHg (83-108); ABG TCO2 17 mmol/L (19-24)
[2021-01-23 21:59] LABS: Allen Test Performed? no
[2021-01-23 22:10] LABS: Basophils % (A) 0 %; Eosinophils # (A) 0.1 k/uL (0-0.7); Eosinophils % (A) 1 %; HCT 35.9 % (39.0-53.0); HGB 11.7 gm/dL (13.0-17.5); Lymphocytes # (A) 0.5 k/uL (1.0-4.8); Lymphocytes % (A) 4 %; MCH 30.1 pg (25.0-35.0); MCHC 32.6 g/dL (31.0-37.0); MCV 92.3 fL (80.0-100.0); Mean Platelet Volume 11.7; Monocytes # (A) 0.3 k/uL (0-1.0); Monocytes % (A) 2 %; Neutrophils # (A) 13.7 k/uL (1.3-7.7); Neutrophils % (A) 93 %; Platelet Count 83 k/uL (150-450); RBC 3.89 m/uL (4.30-5.90); RDW 12.5 % (11.5-15.5); WBC 14.8 k/uL (3.8-10.6)
[2021-01-23 22:22] LABS: Albumin 1.9 g/dL (3.5-5.0); Bilirubin, Delta 0.9 mg/dL (0.0-0.2); Bilirubin,Unconjugated 0.3 mg/dL (0.0-1.1); Calcium 7.3 mg/dL (8.4-10.2); Magnesium 2.2 mg/dL (1.6-2.3); Phosphorus 2.1 mg/dL (2.5-4.5); Total Bilirubin 1.2 mg/dL (0.2-1.3); Total Protein 3.9 g/dL (6.3-8.2)
[2021-01-23 22:26] LABS: INR 1.3 (<1.2); Partial Thromboplastin Time 32.2 sec (22.0-30.0); Prothrombin Time 13.5 sec (9.0-12.0)
[2021-01-23] MEDS ORDERED: VANCOMYCIN IV PER PHARMACY 1 EACH MISC MISCELLANE SCH (22:30)
[2021-01-23 22:38] LABS: Creatine Kinase MB 31.7 ng/mL (0.0-2.4)
[2021-01-23] MEDS ORDERED: VANCOMYCIN 1,750 MG in SODIUM CHLORIDE 0.9% 500 ML 500 ML IVPB ONE (22:45)
[2021-01-23 22:48] LABS: Troponin I 0.539 ng/mL (0.000-0.034)
[2021-01-23] MEDS: metroNIDAZOLE-NS PMX 500 MG in SALINE 1 100ML.BAG IVPB SCH (23:21)
[2021-01-24 00:59] LABS: Amorphous Sediment,Urine Few /hpf; Appearance,Urine Cloudy (Clear); Bacteria,Urine Occasional /hpf; Bilirubin,Urine 1+ (Negative); Blood,Urine Large (Negative); Color,Urine Dark Brown; Glucose,Urine (UA) 2+ (Negative); Ketones,Urine Negative (Negative); Leukocyte Esterase,Urine Trace (Negative); Mucus,Urine Rare /hpf; Nitrite,Urine Negative (Negative); Protein,Urine 2+ (Negative); RBC,Urine 10 /hpf (0-5); Specific Gravity,Urine 1.018 (1.001-1.035); Squamous Epithelial Cell,Urine <1 /hpf (0-4); Urobilinogen,Urine <2.0 mg/dL (<2.0); WBC,Urine 34 /hpf (0-5)
[2021-01-24] MEDS: DEXTROSE 5%-0.45% NACL 1,000 ML IV SCH ×3 (04:08→17:59)
[2021-01-24 05:25] LABS: ABG HCO3 16 mmol/L (21-25); ABG Oxygen Saturation 98.1 % (94-97); ABG PCO2 32 mmHg (35-45); ABG PH 7.29 (7.35-7.45); ABG PO2 96 mmHg (83-108); ABG TCO2 17 mmol/L (19-24)
[2021-01-24 06:03] LABS: Basophils % (A) 0 %; Eosinophils # (A) 0.2 k/uL (0-0.7); Eosinophils % (A) 1 %; HCT 34.2 % (39.0-53.0); HGB 11.6 gm/dL (13.0-17.5); Lymphocytes # (A) 0.8 k/uL (1.0-4.8); Lymphocytes % (A) 5 %; MCH 30.4 pg (25.0-35.0); MCHC 33.9 g/dL (31.0-37.0); MCV 89.8 fL (80.0-100.0); Mean Platelet Volume 11.5; Monocytes # (A) 0.3 k/uL (0-1.0); Monocytes % (A) 2 %; Neutrophils # (A) 15.8 k/uL (1.3-7.7); Neutrophils % (A) 92 %; Platelet Count 97 k/uL (150-450); RBC 3.81 m/uL (4.30-5.90); WBC 17.2 k/uL (3.8-10.6)
[2021-01-24 06:16] LABS: INR 1.2 (<1.2); Partial Thromboplastin Time 31.5 sec (22.0-30.0)
[2021-01-24 06:22] LABS: Bilirubin,Unconjugated 0.2 mg/dL (0.0-1.1); Calcium 7.6 mg/dL (8.4-10.2); Magnesium 2.2 mg/dL (1.6-2.3); Potassium 3.9 mmol/L (3.5-5.1); Total Bilirubin 1.2 mg/dL (0.2-1.3)
--- NOTE | 2021-01-24 06:50 | XR ---
EXAMINATION TYPE: XR chest 1V portable DATE OF EXAM: 01/24/2021 COMPARISON: NONE HISTORY: SOB, Follow Up FINDINGS: Indwelling tubes and catheters are unchanged. Progressive bibasilar opacities. Stable appearance of the cardio-mediastinal structures at this time. Pleural effusion unchanged. IMPRESSION: 1. Progressive basilar infiltrates and effusions. Clinical correlation and follow up until resolution is recommended.
[2021-01-24 07:01] LABS: Creatine Kinase MB 24.3 ng/mL (0.0-2.4)
[2021-01-24 07:14] LABS: Troponin I 0.415 ng/mL (0.000-0.034)
[2021-01-24] MEDS: CHLORHEXIDINE GLUCONATE 15 ML CUP MUCOUS MEM SCH (09:09)
[2021-01-24] MEDS: metroNIDAZOLE-NS PMX 500 MG in SALINE 1 100ML.BAG IVPB SCH ×2 (09:09→16:18)
[2021-01-24 10:57] LABS: ABG Base Excess -11.1 mmol/L; ABG HCO3 15 mmol/L (21-25); ABG Oxygen Saturation 99.8 % (94-97); ABG PCO2 32 mmHg (35-45); ABG PO2 276 mmHg (83-108); ABG TCO2 16 mmol/L (19-24)
[2021-01-24 11:20] LABS: ABG Base Excess -11.8 mmol/L; ABG HCO3 18 mmol/L (21-25); ABG Oxygen Saturation 98.9 % (94-97); ABG PCO2 55 mmHg (35-45); ABG PO2 150 mmHg (83-108); ABG TCO2 19 mmol/L (19-24)
[2021-01-24 11:25] LABS: ABG PH 7.12 (7.35-7.45)
[2021-01-24 11:56] LABS: Glucose,Whole Blood 138 mg/dL (75-99)
[2021-01-24] MEDS ORDERED: VANCOMYCIN 1,750 MG in SODIUM CHLORIDE 0.9% 500 ML 500 ML IVPB ONE (12:00)
[2021-01-24 12:16] VITALS: TEMP 96.3
--- NOTE | 2021-01-24 12:50 | P.PN ---
<Kimberlyn Davis - Last Filed: 01/24/21 12:42> Subjective Progress Note Date: 01/24/21 Principal diagnosis: Cardiopulmonary arrest This is a 40-year-old gentleman with a known history of depression, polysubstance drug abuse including cocaine and heroin. Yesterday afternoon he was found unresponsive at home. EMS was called is found to be in asystole and CPR was started and he was given a total of 3 mg of epinephrine with return of spontaneous circulation then went into asystole again given a fourth milligram of epinephrine he went and a defibrillator normal sinus rhythm. He was given Narcan. He was taken to [facility] initially and subsequently transferred here to our emergency room. He was intubated and placed on vasopressors for pressor support. Exact downtime on known. Initial lab results here revealed a white count of 35.8. Hemoglobin 15.6. Platelet count 238. INR 2.9. Fibrinogen level less than 80. Blood gases on 50% FiO2 is a pO2 of 66, pCO2 40, pH 7.30. Sodium 140. Potassium 4.1. Bicarb 19. Creatinine 1.54. Glucose 143. AST 7444, ALT 5407, albumin 3.4. EKG revealed sinus bradycardia with prolonged QT interval. Computed tomography scan of the brain revealed diffuse sulcal effacement and ortega-white matter blurring consistent with global anoxic injury causing obliteration of the suprasellar and a mesencephalic cisterns. Chest x-ray revealed some infiltrate/atelectasis of left lower lobe. Endotracheal tube in good position. He is seen today in consultation in the intensive care unit. Current vent settings are assist-control mode at a rate of 18, tidal volume 500, FiO2 100% and a PEEP of 5. Follow-up blood gases revealed a pO2 of 169, pCO2 52, pH 7.21. He is on propofol at 10 mcg/kg/m. Norepinephrine at 15.4 mcg/m. 0.9 normal saline at 130 ML's per hour. Urine drug screen was positive for methamphetamine, amphetamine, cocaine, Suboxone, opiates. Neurology has been consulted. EEG is pending. White count 23.8. Hemoglobin 14.1. INR 1.8. Fibrinogen 1.59. Sodium 142. Potassium 3.4. Bicarb 20. Creatinine 1.80. AST 7356, ALT 4235, albumin 2.7. The patient did receive 4 units of pooled cryoprecipitate. He was loaded with Keppra and Depakote. Did receive sodium bicarb. He is a DO NOT RESUSCITATE/DO NOT INTUBATE CODE STATUS. [facility] [employer] [facility] has been contacted. The patient is seen today 01/23/2021 in follow-up in the intensive care unit. He remains intubated on the mechanical ventilator. Currently his assist-control at a rate of 22, tidal volume 500, FiO2 90%, PEEP of 5. Morning blood gases revealed a pO2 of 125, pCO2 48, pH 7.17. He remains on D5 0.4 550 MLS per hour. Norepinephrine at 11 mcg/m. Today he appears to have some minimal brainstem function and he is breathing over the vent when turned down. His respirations are about 10/m. Shallow. Ineffective. No gag reflex. GCS of 3. Pupils fixed, nonreactive. He remains off sedation. Sputum culture pending. White count 20.5. Hemoglobin 13.7. Platelets 138. 41 potassium 4.6. Creatinine 4.23. BUN 29. Glucose 123. EEG reveals severely abnormal findings of background suppression with no definitive electrocerebral activity seen in the by hemispheric region. Suggestive of generalized cerebral dysfunction consistent with severe anoxic encephalopathy. No epileptiform activity seen. The patient is seen today 01/24/2021 follow-up in intensive care unit. He remains intubated on the mechanical ventilator assist control mode. Respiratory rate 26, tidal volume 500, FiO2 50% and a PEEP of 8. Morning blood gases revealed a pO2 of 96, pCO2 32, pH 7.29. He remains off any sedation. He has D5.45 at 150 MLS per hour. 0.9 normal saline at KVO. Norepinephrine has been off. Asked x-ray shows bilateral infiltrates and effusions. Sputum positive for Haemophilus influenza. White count 17.2. Hemoglobin 11.6. Platelet count 97,000. Lymphocytes 0.8. INR 1.2. Sodium 138. Potassium 3.9. Bicarb 15. Creatinine 5.32. Glucose 143. AST 675. ALT 1609. Alk phos 137. CK 673. Troponin 0.446. 0.415. Amylase 356. Lipase 21. The patient was given another apneic oxygenation test this morning. Blood gases after 20% and 100% FiO2 revealed and pO2 of 276, pCO2 32, pH 7.30. He was then placed on a T piece off the mechanical ventilator at 100% for 10 minutes and was apneic throughout those 10 minutes. Follow-up blood gases reveal a pO2 of 150, pCO2 of 55, pH 7.12. Objective - Vital Signs Vital signs: Vital Signs Temp 96.3 F L 01/24/21 12:00 Pulse 79 01/24/21 12:00 Resp 26 H 01/24/21 12:00 BP 113/62 01/23/21 06:15 Pulse Ox 94 L 01/24/21 12:00 Intake & Output 01/23/21 01/24/21 01/24/21 18:59 06:59 18:59 Intake Total 2200.002 3649.238 1020 Output Total 645 10 30 Balance 9343.123 8671.238 990 Weight 117.1 kg Intake: IV 2120 3640 1020 0.9 @ 20 220 240 120 Dextrose 5%-0.45% NaCl 1, 1800 1800 900 000 ml @ 150 mls/hr IV . Q6H40M [facility] Rx#:[id number] Magnesium Sulfate-D5w Pmx 100 1 gm In Dextrose/Water 1 100ml.bag @ 100 mls/hr IVPB Q1H [facility] Rx#: [id number] Vancomycin 1,750 mg In 500 Sodium Chloride 0.9% 500 ml 500 ml @ 167 mls/hr IVPB ONCE ONE Rx#: [id number] bolus 1000 metroNIDAZOLE-NS PMX 500 100 mg In Saline 1 100ml.bag @ 100 mls/hr IVPB Q8HR [facility] Rx#:[id number] Intake, IV Titration 80.002 9.238 Amount Norepinephrine 32 mg In 80.002 9.238 Sodium Chloride 0.9% 218 ml @ 0.05 MCG/KG/MIN 2. 543 mls/hr IV .Q24H [facility] Rx#:[id number] Output: Gastric Drainage 100 Urine 45 10 30 Stool 500 Other: Voiding Method Indwelling Catheter Indwelling Catheter Indwelling Catheter ABP, PAP, CO, CI - Last Documented Arterial Blood Pressure 96/49 - Exam GENERAL EXAM: Intubated, unresponsive 40-year-old male patient off propofol. HEAD: Normocephalic. EYES: No reaction of pupils, equal size. NOSE: Clear with pink turbinates. THROAT: Oral endotracheal and gastric tube secured in place. No erythema or exudates. NECK: No masses, no JVD. CHEST: No chest wall deformity. LUNGS: Equal air entry with no crackles, wheeze, rhonchi or dullness. CVS: S1 and S2 normal with no audible murmur, regular rhythm. ABDOMEN: No hepatosplenomegaly, normal bowel sounds, no guarding or rigidity. SPINE: No scoliosis or deformity SKIN: No rashes CENTRAL NERVOUS SYSTEM: Unresponsive, tone is normal in all 4 extremities. EXTREMITIES: There is no peripheral edema. No clubbing, no cyanosis. Peripheral pulses are intact. - Labs CBC & Chem 7: 01/24/21 05:40 01/24/21 05:40 Labs: Abnormal Lab Results - Last 24 Hours (Table) 01/23/21 01/23/21 01/23/21 Range/Units 21:52 21:55 21:55 WBC 14.8 H (3.8-10.6) k/uL RBC 3.89 L (4.30-5.90) m/uL Hgb 11.7 L (13.0-17.5) gm/dL Hct 35.9 L (39.0-53.0) % Plt Count 83 L (150-450) k/uL Neutrophils # 13.7 H (1.3-7.7) k/uL Lymphocytes # 0.5 L (1.0-4.8) k/uL PT 13.5 H (9.0-12.0) sec INR 1.3 H (<1.2) APTT 32.2 H (22.0-30.0) sec ABG pH 7.31 L (7.35-7.45) ABG pCO2 32 L (35-45) mmHg ABG pO2 (83-108) mmHg ABG HCO3 16 L (21-25) mmol/L ABG Total CO2 17 L (19-24) mmol/L ABG O2 Saturation 98.6 H (94-97) % Chloride (98-107) mmol/L Carbon Dioxide (22-30) mmol/L BUN (9-20) mg/dL Creatinine (0.66-1.25) mg/dL Glucose (74-99) mg/dL POC Glucose (mg/dL) (75-99) mg/dL Calcium (8.4-10.2) mg/dL Phosphorus (2.5-4.5) mg/dL Delta Bilirubin (0.0-0.2) mg/dL AST (17-59) U/L ALT (4-49) U/L Alkaline Phosphatase (38-126) U/L Creatine Kinase (55-170) U/L CK-MB (CK-2) (0.0-2.4) ng/mL Troponin I (0.000-0.034) ng/mL Total Protein (6.3-8.2) g/dL Albumin (3.5-5.0) g/dL Amylase (30-110) U/L Lipase (23-300) U/L Urine Protein (Negative) Urine Glucose (UA) (Negative) Urine Blood (Negative) Urine Bilirubin (Negative) Ur Leukocyte Esterase (Negative) Urine RBC (0-5) /hpf Urine WBC (0-5) /hpf Amorphous Sediment (None) /hpf Urine Bacteria (None) /hpf Urine Mucus (None) /hpf 01/23/21 01/23/21 01/23/21 Range/Units 21:55 21:55 22:30 WBC (3.8-10.6) k/uL RBC (4.30-5.90) m/uL Hgb (13.0-17.5) gm/dL Hct (39.0-53.0) % Plt Count (150-450) k/uL Neutrophils # (1.3-7.7) k/uL Lymphocytes # (1.0-4.8) k/uL PT (9.0-12.0) sec INR (<1.2) APTT (22.0-30.0) sec ABG pH (7.35-7.45) ABG pCO2 (35-45) mmHg ABG pO2 (83-108) mmHg ABG HCO3 (21-25) mmol/L ABG Total CO2 (19-24) mmol/L ABG O2 Saturation (94-97) % Chloride 118 H (98-107) mmol/L Carbon Dioxide 14 L (22-30) mmol/L BUN 34 H (9-20) mg/dL Creatinine 4.97 H (0.66-1.25) mg/dL Glucose 150 H (74-99) mg/dL POC Glucose (mg/dL) (75-99) mg/dL Calcium 7.3 L (8.4-10.2) mg/dL Phosphorus 2.1 L (2.5-4.5) mg/dL Delta Bilirubin 0.9 H (0.0-0.2) mg/dL AST 928 H (17-59) U/L ALT 1769 H (4-49) U/L Alkaline Phosphatase 129 H (38-126) U/L Creatine Kinase 877 H (55-170) U/L CK-MB (CK-2) 31.7 H (0.0-2.4) ng/mL Troponin I 0.539 H* (0.000-0.034) ng/mL Total Protein 3.9 L (6.3-8.2) g/dL Albumin 1.9 L (3.5-5.0) g/dL Amylase 483 H* (30-110) U/L Lipase (23-300) U/L Urine Protein 2+ H (Negative) Urine Glucose (UA) 2+ H (Negative) Urine Blood Large H (Negative) Urine Bilirubin 1+ H (Negative) Ur Leukocyte Esterase Trace H (Negative) Urine RBC 10 H (0-5) /hpf Urine WBC 34 H (0-5) /hpf Amorphous Sediment Few H (None) /hpf Urine Bacteria Occasional H (None) /hpf Urine Mucus Rare H (None) /hpf 01/24/21 01/24/21 01/24/21 Range/Units 02:55 05:20 05:29 WBC (3.8-10.6) k/uL RBC (4.30-5.90) m/uL Hgb (13.0-17.5) gm/dL Hct (39.0-53.0) % Plt Count (150-450) k/uL Neutrophils # (1.3-7.7) k/uL Lymphocytes # (1.0-4.8) k/uL PT (9.0-12.0) sec INR (<1.2) APTT (22.0-30.0) sec ABG pH 7.29 L 7.30 L (7.35-7.45) ABG pCO2 32 L 32 L (35-45) mmHg ABG pO2 276 H (83-108) mmHg ABG HCO3 16 L 15 L (21-25) mmol/L ABG Total CO2 17 L 16 L (19-24) mmol/L ABG O2 Saturation 98.1 H 99.8 H (94-97) % Chloride (98-107) mmol/L Carbon Dioxide (22-30) mmol/L BUN (9-20) mg/dL Creatinine (0.66-1.25) mg/dL Glucose (74-99) mg/dL POC Glucose (mg/dL) (75-99) mg/dL Calcium (8.4-10.2) mg/dL Phosphorus (2.5-4.5) mg/dL Delta Bilirubin (0.0-0.2) mg/dL AST (17-59) U/L ALT (4-49) U/L Alkaline Phosphatase (38-126) U/L Creatine Kinase (55-170) U/L CK-MB (CK-2) (0.0-2.4) ng/mL Troponin I 0.446 H* (0.000-0.034) ng/mL Total Protein (6.3-8.2) g/dL Albumin (3.5-5.0) g/dL Amylase (30-110) U/L Lipase (23-300) U/L Urine Protein (Negative) Urine Glucose (UA) (Negative) Urine Blood (Negative) Urine Bilirubin (Negative) Ur Leukocyte Esterase (Negative) Urine RBC (0-5) /hpf Urine WBC (0-5) /hpf Amorphous Sediment (None) /hpf Urine Bacteria (None) /hpf Urine Mucus (None) /hpf 01/24/21 01/24/21 01/24/21 Range/Units 05:40 05:40 05:40 WBC 17.2 H (3.8-10.6) k/uL RBC 3.81 L (4.30-5.90) m/uL Hgb 11.6 L (13.0-17.5) gm/dL Hct 34.2 L (39.0-53.0) % Plt Count 97 L (150-450) k/uL Neutrophils # 15.8 H (1.3-7.7) k/uL Lymphocytes # 0.8 L (1.0-4.8) k/uL PT (9.0-12.0) sec INR 1.2 H (<1.2) APTT 31.5 H (22.0-30.0) sec ABG pH (7.35-7.45) ABG pCO2 (35-45) mmHg ABG pO2 (83-108) mmHg ABG HCO3 (21-25) mmol/L ABG Total CO2 (19-24) mmol/L ABG O2 Saturation (94-97) % Chloride 118 H (98-107) mmol/L Carbon Dioxide 15 L (22-30) mmol/L BUN 34 H (9-20) mg/dL Creatinine 5.32 H (0.66-1.25) mg/dL Glucose 143 H (74-99) mg/dL POC Glucose (mg/dL) (75-99) mg/dL Calcium 7.6 L (8.4-10.2) mg/dL Phosphorus 2.0 L (2.5-4.5) mg/dL Delta Bilirubin 1.0 H (0.0-0.2) mg/dL AST 675 H (17-59) U/L ALT 1609 H (4-49) U/L Alkaline Phosphatase 137 H (38-126) U/L Creatine Kinase 673 H (55-170) U/L CK-MB (CK-2) (0.0-2.4) ng/mL Troponin I (0.000-0.034) ng/mL Total Protein 4.0 L (6.3-8.2) g/dL Albumin 2.0 L (3.5-5.0) g/dL Amylase 356 H* (30-110) U/L Lipase 21 L (23-300) U/L Urine Protein (Negative) Urine Glucose (UA) (Negative) Urine Blood (Negative) Urine Bilirubin (Negative) Ur Leukocyte Esterase (Negative) Urine RBC (0-5) /hpf Urine WBC (0-5) /hpf Amorphous Sediment (None) /hpf Urine Bacteria (None) /hpf Urine Mucus (None) /hpf 01/24/21 01/24/21 01/24/21 Range/Units 05:40 11:01 11:54 WBC (3.8-10.6) k/uL RBC (4.30-5.90) m/uL Hgb (13.0-17.5) gm/dL Hct (39.0-53.0) % Plt Count (150-450) k/uL Neutrophils # (1.3-7.7) k/uL Lymphocytes # (1.0-4.8) k/uL PT (9.0-12.0) sec INR (<1.2) APTT (22.0-30.0) sec ABG pH 7.12 L* (7.35-7.45) ABG pCO2 55 H (35-45) mmHg ABG pO2 150 H (83-108) mmHg ABG HCO3 18 L (21-25) mmol/L ABG Total CO2 (19-24) mmol/L ABG O2 Saturation 98.9 H (94-97) % Chloride (98-107) mmol/L Carbon Dioxide (22-30) mmol/L BUN (9-20) mg/dL Creatinine (0.66-1.25) mg/dL Glucose (74-99) mg/dL POC Glucose (mg/dL) 138 H (75-99) mg/dL Calcium (8.4-10.2) mg/dL Phosphorus (2.5-4.5) mg/dL Delta Bilirubin (0.0-0.2) mg/dL AST (17-59) U/L ALT (4-49) U/L Alkaline Phosphatase (38-126) U/L Creatine Kinase (55-170) U/L CK-MB (CK-2) 24.3 H (0.0-2.4) ng/mL Troponin I 0.415 H* (0.000-0.034) ng/mL Total Protein (6.3-8.2) g/dL Albumin (3.5-5.0) g/dL Amylase (30-110) U/L Lipase (23-300) U/L Urine Protein (Negative) Urine Glucose (UA) (Negative) Urine Blood (Negative) Urine Bilirubin (Negative) Ur Leukocyte Esterase (Negative) Urine RBC (0-5) /hpf Urine WBC (0-5) /hpf Amorphous Sediment (None) /hpf Urine Bacteria (None) /hpf Urine Mucus (None) /hpf Microbiology - Last 24 Hours (Table) 01/22/21 01:55 Gram Stain - Final Sputum Sputum Culture - Final Haemophilus influenzae Beta Hemolytic Strep Group C Assessment and Plan Assessment: 1 Acute cardiopulmonary arrest suspect secondary to drug overdose of unclear downtime suspect extensive due to CT findings of the brain revealing diffuse sulcal effacement and ortega-white matter blurring consistent with global anoxic injury causing obliteration of the suprasellar and perimesencephalic cisterns. No hydrocephalus or midline shift. The patient was given another apneic oxy genation test today. His pCO2 went up by 33.710 minutes on 100% TPs. No spontaneous respirations. The patient neurologic examination reveals brain . 2 Acute drug overdose with urine drug screen positive for methamphetamine, amphetamine, cocaine, Suboxone, opiates 3 Sever anoxic brain injury requiring intubation and mechanical ventilatory support. EEG reveals severely abnormal findings of background suppression with no definitive electrocerebral activity seen in the by hemispheric region. Suggestive of generalized cerebral dysfunction consistent with severe anoxic encephalopathy. No epileptiform activity seen. 4 Leukocytosis, reactive 5 Coagulopathy secondary to acute liver injury. 6 Shock liver 7 Metabolic/respiratory acidosis secondary to above 8 Hypotension requiring pressor support secondary to above Plan: The patient was seen and evaluated by Dr. Simpson Neurologic exam and apneic oxygenation testing reveals brain as determined by both Dr. Simpson and Dr. Torres The family will be spoken to and if agreeable the patient will be transferred to the [facility] for organ transplantation via [facility] Critical care time 36 minutes I, the cosigning physician, performed a history & physical examination of the patient. Lungs sounds are clear. Maintaining good O2 saturations in the 90s on 50% FiO2 via the mechanical ventilator. I discussed the assessment and plan of care with my nurse practitioner, Kimberlyn Davis. I attest to the above note as dictated by her. <Raúl Simpson - Last Filed: 01/24/21 13:06> Objective - Vital Signs Vital signs: Vital Signs Temp 96.3 F L 01/24/21 12:00 Pulse 77 01/24/21 13:00 Resp 26 H 01/24/21 13:00 BP 113/62 01/23/21 06:15 Pulse Ox 95 01/24/21 13:00 Intake & Output 01/23/21 01/24/21 01/24/21 18:59 06:59 18:59 Intake Total 2200.002 3649.238 1020 Output Total 645 10 30 Balance 4092.713 0054.238 990 Weight 117.1 kg Intake: IV 2120 3640 1020 0.9 @ 20 220 240 120 Dextrose 5%-0.45% NaCl 1, 1800 1800 900 000 ml @ 150 mls/hr IV . Q6H40M [facility] Rx#:[id number] Magnesium Sulfate-D5w Pmx 100 1 gm In Dextrose/Water 1 100ml.bag @ 100 mls/hr IVPB Q1H [facility] Rx#: [id number] Vancomycin 1,750 mg In 500 Sodium Chloride 0.9% 500 ml 500 ml @ 167 mls/hr IVPB ONCE ONE Rx#: [id number] bolus 1000 metroNIDAZOLE-NS PMX 500 100 mg In Saline 1 100ml.bag @ 100 mls/hr IVPB Q8HR [facility] Rx#:[id number] Intake, IV Titration 80.002 9.238 Amount Norepinephrine 32 mg In 80.002 9.238 Sodium Chloride 0.9% 218 ml @ 0.05 MCG/KG/MIN 2. 543 mls/hr IV .Q24H [facility] Rx#:[id number] Output: Gastric Drainage 100 Urine 45 10 30 Stool 500 Other: Voiding Method Indwelling Catheter Indwelling Catheter Indwelling Catheter ABP, PAP, CO, CI - Last Documented Arterial Blood Pressure 91/47 - Labs CBC & Chem 7: 01/24/21 05:40 01/24/21 05:40 Labs: Abnormal Lab Results - Last 24 Hours (Table) 01/23/21 01/23/21 01/23/21 Range/Units 21:52 21:55 21:55 WBC 14.8 H (3.8-10.6) k/uL RBC 3.89 L (4.30-5.90) m/uL Hgb 11.7 L (13.0-17.5) gm/dL Hct 35.9 L (39.0-53.0) % Plt Count 83 L (150-450) k/uL Neutrophils # 13.7 H (1.3-7.7) k/uL Lymphocytes # 0.5 L (1.0-4.8) k/uL PT 13.5 H (9.0-12.0) sec INR 1.3 H (<1.2) APTT 32.2 H (22.0-30.0) sec ABG pH 7.31 L (7.35-7.45) ABG pCO2 32 L (35-45) mmHg ABG pO2 (83-108) mmHg ABG HCO3 16 L (21-25) mmol/L ABG Total CO2 17 L (19-24) mmol/L ABG O2 Saturation 98.6 H (94-97) % Chloride (98-107) mmol/L Carbon Dioxide (22-30) mmol/L BUN (9-20) mg/dL Creatinine (0.66-1.25) mg/dL Glucose (74-99) mg/dL POC Glucose (mg/dL) (75-99) mg/dL Calcium (8.4-10.2) mg/dL Phosphorus (2.5-4.5) mg/dL Delta Bilirubin (0.0-0.2) mg/dL AST (17-59) U/L ALT (4-49) U/L Alkaline Phosphatase (38-126) U/L Creatine Kinase (55-170) U/L CK-MB (CK-2) (0.0-2.4) ng/mL Troponin I (0.000-0.034) ng/mL Total Protein (6.3-8.2) g/dL Albumin (3.5-5.0) g/dL Amylase (30-110) U/L Lipase (23-300) U/L Urine Protein (Negative) Urine Glucose (UA) (Negative) Urine Blood (Negative) Urine Bilirubin (Negative) Ur Leukocyte Esterase (Negative) Urine RBC (0-5) /hpf Urine WBC (0-5) /hpf Amorphous Sediment (None) /hpf Urine Bacteria (None) /hpf Urine Mucus (None) /hpf 01/23/21 01/23/21 01/23/21 Range/Units 21:55 21:55 22:30 WBC (3.8-10.6) k/uL RBC (4.30-5.90) m/uL Hgb (13.0-17.5) gm/dL Hct (39.0-53.0) % Plt Count (150-450) k/uL Neutrophils # (1.3-7.7) k/uL Lymphocytes # (1.0-4.8) k/uL PT (9.0-12.0) sec INR (<1.2) APTT (22.0-30.0) sec ABG pH (7.35-7.45) ABG pCO2 (35-45) mmHg ABG pO2 (83-108) mmHg ABG HCO3 (21-25) mmol/L ABG Total CO2 (19-24) mmol/L ABG O2 Saturation (94-97) % Chloride 118 H (98-107) mmol/L Carbon Dioxide 14 L (22-30) mmol/L BUN 34 H (9-20) mg/dL Creatinine 4.97 H (0.66-1.25) mg/dL Glucose 150 H (74-99) mg/dL POC Glucose (mg/dL) (75-99) mg/dL Calcium 7.3 L (8.4-10.2) mg/dL Phosphorus 2.1 L (2.5-4.5) mg/dL Delta Bilirubin 0.9 H (0.0-0.2) mg/dL AST 928 H (17-59) U/L ALT 1769 H (4-49) U/L Alkaline Phosphatase 129 H (38-126) U/L Creatine Kinase 877 H (55-170) U/L CK-MB (CK-2) 31.7 H (0.0-2.4) ng/mL Troponin I 0.539 H* (0.000-0.034) ng/mL Total Protein 3.9 L (6.3-8.2) g/dL Albumin 1.9 L (3.5-5.0) g/dL Amylase 483 H* (30-110) U/L Lipase (23-300) U/L Urine Protein 2+ H (Negative) Urine Glucose (UA) 2+ H (Negative) Urine Blood Large H (Negative) Urine Bilirubin 1+ H (Negative) Ur Leukocyte Esterase Trace H (Negative) Urine RBC 10 H (0-5) /hpf Urine WBC 34 H (0-5) /hpf Amorphous Sediment Few H (None) /hpf Urine Bacteria Occasional H (None) /hpf Urine Mucus Rare H (None) /hpf 01/24/21 01/24/21 01/24/21 Range/Units 02:55 05:20 05:29 WBC (3.8-10.6) k/uL RBC (4.30-5.90) m/uL Hgb (13.0-17.5) gm/dL Hct (39.0-53.0) % Plt Count (150-450) k/uL Neutrophils # (1.3-7.7) k/uL Lymphocytes # (1.0-4.8) k/uL PT (9.0-12.0) sec INR (<1.2) APTT (22.0-30.0) sec ABG pH 7.29 L 7.30 L (7.35-7.45) ABG pCO2 32 L 32 L (35-45) mmHg ABG pO2 276 H (83-108) mmHg ABG HCO3 16 L 15 L (21-25) mmol/L ABG Total CO2 17 L 16 L (19-24) mmol/L ABG O2 Saturation 98.1 H 99.8 H (94-97) % Chloride (98-107) mmol/L Carbon Dioxide (22-30) mmol/L BUN (9-20) mg/dL Creatinine (0.66-1.25) mg/dL Glucose (74-99) mg/dL POC Glucose (mg/dL) (75-99) mg/dL Calcium (8.4-10.2) mg/dL Phosphorus (2.5-4.5) mg/dL Delta Bilirubin (0.0-0.2) mg/dL AST (17-59) U/L ALT (4-49) U/L Alkaline Phosphatase (38-126) U/L Creatine Kinase (55-170) U/L CK-MB (CK-2) (0.0-2.4) ng/mL Troponin I 0.446 H* (0.000-0.034) ng/mL Total Protein (6.3-8.2) g/dL Albumin (3.5-5.0) g/dL Amylase (30-110) U/L Lipase (23-300) U/L Urine Protein (Negative) Urine Glucose (UA) (Negative) Urine Blood (Negative) Urine Bilirubin (Negative) Ur Leukocyte Esterase (Negative) Urine RBC (0-5) /hpf Urine WBC (0-5) /hpf Amorphous Sediment (None) /hpf Urine Bacteria (None) /hpf Urine Mucus (None) /hpf 01/24/21 01/24/21 01/24/21 Range/Units 05:40 05:40 05:40 WBC 17.2 H (3.8-10.6) k/uL RBC 3.81 L (4.30-5.90) m/uL Hgb 11.6 L (13.0-17.5) gm/dL Hct 34.2 L (39.0-53.0) % Plt Count 97 L (150-450) k/uL Neutrophils # 15.8 H (1.3-7.7) k/uL Lymphocytes # 0.8 L (1.0-4.8) k/uL PT (9.0-12.0) sec INR 1.2 H (<1.2) APTT 31.5 H (22.0-30.0) sec ABG pH (7.35-7.45) ABG pCO2 (35-45) mmHg ABG pO2 (83-108) mmHg ABG HCO3 (21-25) mmol/L ABG Total CO2 (19-24) mmol/L ABG O2 Saturation (94-97) % Chloride 118 H (98-107) mmol/L Carbon Dioxide 15 L (22-30) mmol/L BUN 34 H (9-20) mg/dL Creatinine 5.32 H (0.66-1.25) mg/dL Glucose 143 H (74-99) mg/dL POC Glucose (mg/dL) (75-99) mg/dL Calcium 7.6 L (8.4-10.2) mg/dL Phosphorus 2.0 L (2.5-4.5) mg/dL Delta Bilirubin 1.0 H (0.0-0.2) mg/dL AST 675 H (17-59) U/L ALT 1609 H (4-49) U/L Alkaline Phosphatase 137 H (38-126) U/L Creatine Kinase 673 H (55-170) U/L CK-MB (CK-2) (0.0-2.4) ng/mL Troponin I (0.000-0.034) ng/mL Total Protein 4.0 L (6.3-8.2) g/dL Albumin 2.0 L (3.5-5.0) g/dL Amylase 356 H* (30-110) U/L Lipase 21 L (23-300) U/L Urine Protein (Negative) Urine Glucose (UA) (Negative) Urine Blood (Negative) Urine Bilirubin (Negative) Ur Leukocyte Esterase (Negative) Urine RBC (0-5) /hpf Urine WBC (0-5) /hpf Amorphous Sediment (None) /hpf Urine Bacteria (None) /hpf Urine Mucus (None) /hpf 01/24/21 01/24/21 01/24/21 Range/Units 05:40 11:01 11:54 WBC (3.8-10.6) k/uL RBC (4.30-5.90) m/uL Hgb (13.0-17.5) gm/dL Hct (39.0-53.0) % Plt Count (150-450) k/uL Neutrophils # (1.3-7.7) k/uL Lymphocytes # (1.0-4.8) k/uL PT (9.0-12.0) sec INR (<1.2) APTT (22.0-30.0) sec ABG pH 7.12 L* (7.35-7.45) ABG pCO2 55 H (35-45) mmHg ABG pO2 150 H (83-108) mmHg ABG HCO3 18 L (21-25) mmol/L ABG Total CO2 (19-24) mmol/L ABG O2 Saturation 98.9 H (94-97) % Chloride (98-107) mmol/L Carbon Dioxide (22-30) mmol/L BUN (9-20) mg/dL Creatinine (0.66-1.25) mg/dL Glucose (74-99) mg/dL POC Glucose (mg/dL) 138 H (75-99) mg/dL Calcium (8.4-10.2) mg/dL Phosphorus (2.5-4.5) mg/dL Delta Bilirubin (0.0-0.2) mg/dL AST (17-59) U/L ALT (4-49) U/L Alkaline Phosphatase (38-126) U/L Creatine Kinase (55-170) U/L CK-MB (CK-2) 24.3 H (0.0-2.4) ng/mL Troponin I 0.415 H* (0.000-0.034) ng/mL Total Protein (6.3-8.2) g/dL Albumin (3.5-5.0) g/dL Amylase (30-110) U/L Lipase (23-300) U/L Urine Protein (Negative) Urine Glucose (UA) (Negative) Urine Blood (Negative) Urine Bilirubin (Negative) Ur Leukocyte Esterase (Negative) Urine RBC (0-5) /hpf Urine WBC (0-5) /hpf Amorphous Sediment (None) /hpf Urine Bacteria (None) /hpf Urine Mucus (None) /hpf Microbiology - Last 24 Hours (Table) 01/22/21 01:55 Gram Stain - Final Sputum Sputum Culture - Final Haemophilus influenzae Beta Hemolytic Strep Group C
--- NOTE | 2021-01-24 13:55 | P.PN ---
Subjective Progress Note Date: 01/24/21 Patient is comatose. On no sedation for last 48 hours. No seizure-like activity. No clinical change. Blood test shows WBC 17.2, hemoglobin 11.6, platelets 97. Patient's pH is 7.17, pCO2 48, pO2 125. Electrolytes are normal, BUN 34, creatinine is further versus 5.3 to. Patient's AST has improved 675, ALT 1609. 2-D echo revealed mild concentric LVH. EF is mildly impaired between 45-50%. Global wall thickness of the right ventricle is moderately enlarged. Unable to visualize the septum. EEG from 01/22/2021 revealed severely suppressed background, almost appearing isoelectric pattern. In appropriate clinical setting, this EEG pattern may be consistent with brain . No epileptiform activity was seen. Objective - Vital Signs Vital signs: Vital Signs Temp 96.3 F L 01/24/21 12:00 Pulse 77 01/24/21 13:00 Resp 26 H 01/24/21 13:00 BP 113/62 01/23/21 06:15 Pulse Ox 95 01/24/21 13:00 Intake & Output 01/23/21 01/24/21 01/24/21 18:59 06:59 18:59 Intake Total 2200.002 3649.238 1020 Output Total 645 10 30 Balance 6753.709 8666.238 990 Weight 117.1 kg Intake: IV 2120 3640 1020 0.9 @ 20 220 240 120 Dextrose 5%-0.45% NaCl 1, 1800 1800 900 000 ml @ 150 mls/hr IV . Q6H40M [facility] Rx#:[id number] Magnesium Sulfate-D5w Pmx 100 1 gm In Dextrose/Water 1 100ml.bag @ 100 mls/hr IVPB Q1H [facility] Rx#: [id number] Vancomycin 1,750 mg In 500 Sodium Chloride 0.9% 500 ml 500 ml @ 167 mls/hr IVPB ONCE ONE Rx#: [id number] bolus 1000 metroNIDAZOLE-NS PMX 500 100 mg In Saline 1 100ml.bag @ 100 mls/hr IVPB Q8HR [facility] Rx#:[id number] Intake, IV Titration 80.002 9.238 Amount Norepinephrine 32 mg In 80.002 9.238 Sodium Chloride 0.9% 218 ml @ 0.05 MCG/KG/MIN 2. 543 mls/hr IV .Q24H [facility] Rx#:[id number] Output: Gastric Drainage 100 Urine 45 10 30 Stool 500 Other: Voiding Method Indwelling Catheter Indwelling Catheter Indwelling Catheter ABP, PAP, CO, CI - Last Documented Arterial Blood Pressure 91/47 - Exam On examination patient is a young male, who is intubated, not on any sedation. Patient is comatose, with GCS of 3. Patient does not respond to loud verbal, or deep painful stimuli. Patient's pupils are 6 mm, dilated, fixed, nonreactive. Oculocephalics (doll's reflexes) are absent. Corneals absent. Face, tongue cannot be assessed. Patient has no gag, no cough reflex with deep suctioning. On changing ventilator setting to spontaneous respiration by the respiratory therapist, patient did not initiate any breath for about 40 seconds. Patient started desaturating. Subsequently cold caloric reflex was checked. Head end was elevated at 30. At first cold water was instilled into the right EAC using 50 mL syringe. No nystagmus noted. Then warm water 50 mL was instilled into the right ear, with no nystagmus. The same procedure was then carried out in the left ear. No nystagmus noted by myself, or the two nurses present. Patient does not respond to painful stimuli. Reflexes are absent at biceps, brachioradialis, knees and ankles. Plantars are flat. No seizure-like activity noted. - Labs CBC & Chem 7: 01/24/21 05:40 01/24/21 05:40 Labs: Abnormal Lab Results - Last 24 Hours (Table) 01/23/21 01/23/21 01/23/21 Range/Units 21:52 21:55 21:55 WBC 14.8 H (3.8-10.6) k/uL RBC 3.89 L (4.30-5.90) m/uL Hgb 11.7 L (13.0-17.5) gm/dL Hct 35.9 L (39.0-53.0) % Plt Count 83 L (150-450) k/uL Neutrophils # 13.7 H (1.3-7.7) k/uL Lymphocytes # 0.5 L (1.0-4.8) k/uL PT 13.5 H (9.0-12.0) sec INR 1.3 H (<1.2) APTT 32.2 H (22.0-30.0) sec ABG pH 7.31 L (7.35-7.45) ABG pCO2 32 L (35-45) mmHg ABG pO2 (83-108) mmHg ABG HCO3 16 L (21-25) mmol/L ABG Total CO2 17 L (19-24) mmol/L ABG O2 Saturation 98.6 H (94-97) % Chloride (98-107) mmol/L Carbon Dioxide (22-30) mmol/L BUN (9-20) mg/dL Creatinine (0.66-1.25) mg/dL Glucose (74-99) mg/dL POC Glucose (mg/dL) (75-99) mg/dL Calcium (8.4-10.2) mg/dL Phosphorus (2.5-4.5) mg/dL Delta Bilirubin (0.0-0.2) mg/dL AST (17-59) U/L ALT (4-49) U/L Alkaline Phosphatase (38-126) U/L Creatine Kinase (55-170) U/L CK-MB (CK-2) (0.0-2.4) ng/mL Troponin I (0.000-0.034) ng/mL Total Protein (6.3-8.2) g/dL Albumin (3.5-5.0) g/dL Amylase (30-110) U/L Lipase (23-300) U/L Urine Protein (Negative) Urine Glucose (UA) (Negative) Urine Blood (Negative) Urine Bilirubin (Negative) Ur Leukocyte Esterase (Negative) Urine RBC (0-5) /hpf Urine WBC (0-5) /hpf Amorphous Sediment (None) /hpf Urine Bacteria (None) /hpf Urine Mucus (None) /hpf 01/23/21 01/23/21 01/23/21 Range/Units 21:55 21:55 22:30 WBC (3.8-10.6) k/uL RBC (4.30-5.90) m/uL Hgb (13.0-17.5) gm/dL Hct (39.0-53.0) % Plt Count (150-450) k/uL Neutrophils # (1.3-7.7) k/uL Lymphocytes # (1.0-4.8) k/uL PT (9.0-12.0) sec INR (<1.2) APTT (22.0-30.0) sec ABG pH (7.35-7.45) ABG pCO2 (35-45) mmHg ABG pO2 (83-108) mmHg ABG HCO3 (21-25) mmol/L ABG Total CO2 (19-24) mmol/L ABG O2 Saturation (94-97) % Chloride 118 H (98-107) mmol/L Carbon Dioxide 14 L (22-30) mmol/L BUN 34 H (9-20) mg/dL Creatinine 4.97 H (0.66-1.25) mg/dL Glucose 150 H (74-99) mg/dL POC Glucose (mg/dL) (75-99) mg/dL Calcium 7.3 L (8.4-10.2) mg/dL Phosphorus 2.1 L (2.5-4.5) mg/dL Delta Bilirubin 0.9 H (0.0-0.2) mg/dL AST 928 H (17-59) U/L ALT 1769 H (4-49) U/L Alkaline Phosphatase 129 H (38-126) U/L Creatine Kinase 877 H (55-170) U/L CK-MB (CK-2) 31.7 H (0.0-2.4) ng/mL Troponin I 0.539 H* (0.000-0.034) ng/mL Total Protein 3.9 L (6.3-8.2) g/dL Albumin 1.9 L (3.5-5.0) g/dL Amylase 483 H* (30-110) U/L Lipase (23-300) U/L Urine Protein 2+ H (Negative) Urine Glucose (UA) 2+ H (Negative) Urine Blood Large H (Negative) Urine Bilirubin 1+ H (Negative) Ur Leukocyte Esterase Trace H (Negative) Urine RBC 10 H (0-5) /hpf Urine WBC 34 H (0-5) /hpf Amorphous Sediment Few H (None) /hpf Urine Bacteria Occasional H (None) /hpf Urine Mucus Rare H (None) /hpf 01/24/21 01/24/21 01/24/21 Range/Units 02:55 05:20 05:29 WBC (3.8-10.6) k/uL RBC (4.30-5.90) m/uL Hgb (13.0-17.5) gm/dL Hct (39.0-53.0) % Plt Count (150-450) k/uL Neutrophils # (1.3-7.7) k/uL Lymphocytes # (1.0-4.8) k/uL PT (9.0-12.0) sec INR (<1.2) APTT (22.0-30.0) sec ABG pH 7.29 L 7.30 L (7.35-7.45) ABG pCO2 32 L 32 L (35-45) mmHg ABG pO2 276 H (83-108) mmHg ABG HCO3 16 L 15 L (21-25) mmol/L ABG Total CO2 17 L 16 L (19-24) mmol/L ABG O2 Saturation 98.1 H 99.8 H (94-97) % Chloride (98-107) mmol/L Carbon Dioxide (22-30) mmol/L BUN (9-20) mg/dL Creatinine (0.66-1.25) mg/dL Glucose (74-99) mg/dL POC Glucose (mg/dL) (75-99) mg/dL Calcium (8.4-10.2) mg/dL Phosphorus (2.5-4.5) mg/dL Delta Bilirubin (0.0-0.2) mg/dL AST (17-59) U/L ALT (4-49) U/L Alkaline Phosphatase (38-126) U/L Creatine Kinase (55-170) U/L CK-MB (CK-2) (0.0-2.4) ng/mL Troponin I 0.446 H* (0.000-0.034) ng/mL Total Protein (6.3-8.2) g/dL Albumin (3.5-5.0) g/dL Amylase (30-110) U/L Lipase (23-300) U/L Urine Protein (Negative) Urine Glucose (UA) (Negative) Urine Blood (Negative) Urine Bilirubin (Negative) Ur Leukocyte Esterase (Negative) Urine RBC (0-5) /hpf Urine WBC (0-5) /hpf Amorphous Sediment (None) /hpf Urine Bacteria (None) /hpf Urine Mucus (None) /hpf 01/24/21 01/24/21 01/24/21 Range/Units 05:40 05:40 05:40 WBC 17.2 H (3.8-10.6) k/uL RBC 3.81 L (4.30-5.90) m/uL Hgb 11.6 L (13.0-17.5) gm/dL Hct 34.2 L (39.0-53.0) % Plt Count 97 L (150-450) k/uL Neutrophils # 15.8 H (1.3-7.7) k/uL Lymphocytes # 0.8 L (1.0-4.8) k/uL PT (9.0-12.0) sec INR 1.2 H (<1.2) APTT 31.5 H (22.0-30.0) sec ABG pH (7.35-7.45) ABG pCO2 (35-45) mmHg ABG pO2 (83-108) mmHg ABG HCO3 (21-25) mmol/L ABG Total CO2 (19-24) mmol/L ABG O2 Saturation (94-97) % Chloride 118 H (98-107) mmol/L Carbon Dioxide 15 L (22-30) mmol/L BUN 34 H (9-20) mg/dL Creatinine 5.32 H (0.66-1.25) mg/dL Glucose 143 H (74-99) mg/dL POC Glucose (mg/dL) (75-99) mg/dL Calcium 7.6 L (8.4-10.2) mg/dL Phosphorus 2.0 L (2.5-4.5) mg/dL Delta Bilirubin 1.0 H (0.0-0.2) mg/dL AST 675 H (17-59) U/L ALT 1609 H (4-49) U/L Alkaline Phosphatase 137 H (38-126) U/L Creatine Kinase 673 H (55-170) U/L CK-MB (CK-2) (0.0-2.4) ng/mL Troponin I (0.000-0.034) ng/mL Total Protein 4.0 L (6.3-8.2) g/dL Albumin 2.0 L (3.5-5.0) g/dL Amylase 356 H* (30-110) U/L Lipase 21 L (23-300) U/L Urine Protein (Negative) Urine Glucose (UA) (Negative) Urine Blood (Negative) Urine Bilirubin (Negative) Ur Leukocyte Esterase (Negative) Urine RBC (0-5) /hpf Urine WBC (0-5) /hpf Amorphous Sediment (None) /hpf Urine Bacteria (None) /hpf Urine Mucus (None) /hpf 01/24/21 01/24/21 01/24/21 Range/Units 05:40 11:01 11:54 WBC (3.8-10.6) k/uL RBC (4.30-5.90) m/uL Hgb (13.0-17.5) gm/dL Hct (39.0-53.0) % Plt Count (150-450) k/uL Neutrophils # (1.3-7.7) k/uL Lymphocytes # (1.0-4.8) k/uL PT (9.0-12.0) sec INR (<1.2) APTT (22.0-30.0) sec ABG pH 7.12 L* (7.35-7.45) ABG pCO2 55 H (35-45) mmHg ABG pO2 150 H (83-108) mmHg ABG HCO3 18 L (21-25) mmol/L ABG Total CO2 (19-24) mmol/L ABG O2 Saturation 98.9 H (94-97) % Chloride (98-107) mmol/L Carbon Dioxide (22-30) mmol/L BUN (9-20) mg/dL Creatinine (0.66-1.25) mg/dL Glucose (74-99) mg/dL POC Glucose (mg/dL) 138 H (75-99) mg/dL Calcium (8.4-10.2) mg/dL Phosphorus (2.5-4.5) mg/dL Delta Bilirubin (0.0-0.2) mg/dL AST (17-59) U/L ALT (4-49) U/L Alkaline Phosphatase (38-126) U/L Creatine Kinase (55-170) U/L CK-MB (CK-2) 24.3 H (0.0-2.4) ng/mL Troponin I 0.415 H* (0.000-0.034) ng/mL Total Protein (6.3-8.2) g/dL Albumin (3.5-5.0) g/dL Amylase (30-110) U/L Lipase (23-300) U/L Urine Protein (Negative) Urine Glucose (UA) (Negative) Urine Blood (Negative) Urine Bilirubin (Negative) Ur Leukocyte Esterase (Negative) Urine RBC (0-5) /hpf Urine WBC (0-5) /hpf Amorphous Sediment (None) /hpf Urine Bacteria (None) /hpf Urine Mucus (None) /hpf Microbiology - Last 24 Hours (Table) 01/22/21 01:55 Gram Stain - Final Sputum Sputum Culture - Final Haemophilus influenzae Beta Hemolytic Strep Group C Assessment and Plan Assessment: * Cerebral . On today's examination, no response noted with extensive testing performed as mentioned above. * Status post cardiac arrest, with prolonged downtime * Severe anoxic encephalopathy, deep comatose state, GCS of 3. * Seizure-like activity, now completely resolved. * Polysubstance abuse, with urine positive for cocaine, methamphetamine, ampheta mines and buprenorphine Plan: * At present patient has no cortical or brainstem function. Apnea test was performed by bobbin hauler, which was also positive (consistent with brain ). * Time of declared at 12:51 PM. * [facility] and the nursing staff was informed. Also discussed with ICU staff. * Neurology will sign off. Time with Patient: Greater than 30
[2021-01-24] MEDS: NOREPINEPHRINE 32 MG in SODIUM CHLORIDE 0.9% 218 ML IV SCH (15:38)
[2021-01-24 15:53] LABS: Basophils % (A) 0 %; Eosinophils # (A) 0.2 k/uL (0-0.7); Eosinophils % (A) 1 %; HCT 34.1 % (39.0-53.0); HGB 11.1 gm/dL (13.0-17.5); Lymphocytes # (A) 0.7 k/uL (1.0-4.8); Lymphocytes % (A) 4 %; MCHC 32.6 g/dL (31.0-37.0); MCV 92.2 fL (80.0-100.0); Mean Platelet Volume 11.8; Monocytes # (A) 0.3 k/uL (0-1.0); Monocytes % (A) 2 %; Neutrophils # (A) 17.8 k/uL (1.3-7.7); Neutrophils % (A) 93 %; RDW 12.8 % (11.5-15.5); WBC 19.3 k/uL (3.8-10.6)
[2021-01-24 15:54] LABS: Platelet Count 89 k/uL (150-450)
[2021-01-24 16:02] LABS: Partial Thromboplastin Time 31.3 sec (22.0-30.0)
[2021-01-24 16:10] LABS: Albumin 1.9 g/dL (3.5-5.0); Bilirubin, Delta 0.7 mg/dL (0.0-0.2); Bilirubin,Unconjugated 0.2 mg/dL (0.0-1.1); Calcium 7.6 mg/dL (8.4-10.2); Phosphorus 1.9 mg/dL (2.5-4.5); Potassium 3.9 mmol/L (3.5-5.1); Total Bilirubin 0.9 mg/dL (0.2-1.3); Total Protein 4.1 g/dL (6.3-8.2)
[2021-01-24 16:36] LABS: ABG Base Excess -11.2 mmol/L; ABG HCO3 15 mmol/L (21-25); ABG Oxygen Saturation 98.2 % (94-97); ABG PCO2 31 mmHg (35-45); ABG PO2 100 mmHg (83-108); ABG TCO2 16 mmol/L (19-24); Allen Test Performed? Yes
[2021-01-24 16:43] LABS: Creatine Kinase MB 19.7 ng/mL (0.0-2.4)
[2021-01-24 16:52] LABS: Troponin I 0.307 ng/mL (0.000-0.034)
--- NOTE | 2021-01-24 16:53 | P.DS ---
Providers Date of admission: 01/21/21 15:20 Expected date of discharge: 01/24/21 Attending physician: Annamaria Bateman MD Consults: 01/21/21 15:17 Consult Physician Routine Consulting Provider: Marco A Santiago Consult Reason/Comments: anoxic brain injury Do you want consulting provider notified?: Yes Consult Physician Stat Consulting Provider: Raúl Simpson Consult Reason/Comments: cardiac arrest Do you want consulting provider notified?: Yes Primary care physician: Stated None Hospital Course: Narcotic overdose Cardiac arrest with return of spontaneous circulation Global anoxic brain injury Hypoglycemia Acute Kidney Injury -Admitted to ICU. Pulmonary, neurology consulted. Goals of care conversation with family in light of minimimal brain activity and family understanding that patient was likely brain . Apnea stim test, EEG, physical exam were consistent with the absence of brain stem reflexes across 72 hours of hospitalization. Time of determined to be 12:51 on 01/24. [facility] contacted as family were amenable to organ donation. I spent 40 minutes coordinating this complex discharge. Assessment: Gen: Intubated, nonresponsive Resp: Vent: AC 500, PEEP of 5, FiO2 70%, Neuro: Fixed and dilated pupils, no movement to painful stimulus in all 4 extremities, no gag, no cough, +dolls eyes, -corneal reflex Plan - Discharge Summary New Discharge Prescriptions: Discontinued Sertraline [Zoloft] 50 mg PO DAILY traZODone HCL [Desyrel] 100 mg PO HS Sertraline [Zoloft] 100 mg PO DAILY Buprenorphine HCl/Naloxone HCl [Suboxone 4 mg-1 mg Sl Film] 1 film SL TID Follow up Appointment(s)/Referral(s): None,Stated [Primary Care Provider] - 1-2 days Discharge Disposition: - Preliminary Cause of Preliminary Cause of : Heroin overdose
[2021-01-24 17:54] LABS: Glucose,Whole Blood 120 mg/dL (75-99)
--- NOTE | 2021-01-24 18:03 | CT ---
EXAMINATION TYPE: CT ChestAbdPelvis wo con DATE OF EXAM: 01/24/2021 COMPARISON: None HISTORY: Organ donor CT DLP: 2294.4 mGycm Automated exposure control for dose reduction was used. There is endotracheal tube. There is bilateral extensive infiltrate and atelectasis in the lung bases bilaterally. There is left-sided central venous catheter with tip in the superior vena cava. Heart a ppears borderline enlarged. There is no mediastinal adenopathy. Gallbladder liver spleen stomach appear intact. There is nasogastric tube. There is no evidence of pa ncreatic mass. There is no adrenal mass. Kidneys have normal size and contour. There is no hydronephrosis. Ureters a re not dilated. There is small amount of fluid in the abdominal paracolic gutters. There is Eddy cat heter in the urinary bladder. There is some free fluid in the pelvis. There is no evidence of free ai r. There is no sign of a bowel obstruction. Lumbar vertebra and thoracic vertebra have normal spacing and alignment. Posterior elements are intac t. The bony pelvis is intact. IMPRESSION: Bilateral lower lobe pneumonia and atelectasis. Abdominal mild ascites.
[2021-01-24 19:08] VITALS: PULSE 70
[2021-01-24] MEDS ORDERED: SODIUM BICARB 8.4% 50 ML SYR (1 MEQ/ML) ONE (20:01)
== END 2021-01-25 04:52 | disposition expired | DRG 917 ==
LOC: EC 14:34 → 2SICU 15:20
PROVIDERS: ADMIT Internal Medicine; ATTEND Internal Medicine
PROC: 5A1945Z Respiratory Ventilation, 24-96 Consecutive Hours (ICD-10-PCS; principal; 2021-01-21)
PROC: 3E033XZ Introduction of Vasopressor into Peripheral Vein, Percutaneous Approach (ICD-10-PCS; 2021-01-21)
PROC: 0BH17EZ Insertion of Endotracheal Airway into Trachea, Via Natural or Artificial Opening (ICD-10-PCS; 2021-01-21)
PROC: 0DH67UZ Insertion of Feeding Device into Stomach, Via Natural or Artificial Opening (ICD-10-PCS; 2021-01-21)
PROC: 02H633Z Insertion of Infusion Device into Right Atrium, Percutaneous Approach (ICD-10-PCS; 2021-01-22)
PROC: 03HY32Z Insertion of Monitoring Device into Upper Artery, Percutaneous Approach (ICD-10-PCS; 2021-01-22)
PROC: 4A133B1 Monitoring of Arterial Pressure, Peripheral, Percutaneous Approach (ICD-10-PCS; 2021-01-22)
PROC: 4A133J1 Monitoring of Arterial Pulse, Peripheral, Percutaneous Approach (ICD-10-PCS; 2021-01-22)
DX: T40.1X1A Poisoning by heroin, accidental (unintentional), initial encounter (principal); J96.01 Acute respiratory failure with hypoxia; K72.00 Acute and subacute hepatic failure without coma; D68.4 Acquired coagulation factor deficiency; E87.2 Acidosis; G93.1 Anoxic brain damage, not elsewhere classified; N17.9 Acute kidney failure, unspecified; R57.9 Shock, unspecified; J98.11 Atelectasis; D72.829 Elevated white blood cell count, unspecified; I46.8 Cardiac arrest due to other underlying condition; E16.2 Hypoglycemia, unspecified; Z20.822 Contact with and (suspected) exposure to COVID-19; F14.10 Cocaine abuse, uncomplicated; I48.91 Unspecified atrial fibrillation; Z66 Do not resuscitate; Z79.899 Other long term (current) drug therapy; F15.10 Other stimulant abuse, uncomplicated; I51.7 Cardiomegaly; R00.1 Bradycardia, unspecified
CPT/HCPCS: 36600; 70450; 71045; 71250; 74176; 80048; 80051; 80053; 81001; 82150; 82248; 82533; 82550; 82553; 82805; 83690; 83735; 84100; 84484; 85025; 85027; 85384; 85610; 85730; 86850; 86900; 86901; 87040; 87070; 87086; 87205; 87635; 93306; 94002; 94003; 95822; 99291